=== PATIENT | male | born 1930 | race Caucasian/White ===

== ENCOUNTER 2019-02-11 15:27 | Inpatient (IN) | payer MEDICARE, BC ==
[2019-02-11] MEDS ORDERED: SODIUM CHLORIDE 0.9% 1,000 ML IV STA ×2 (16:46)
[2019-02-11] MEDS ORDERED: SODIUM CHLORIDE 0.9% 500 ML 500 ML IV STA (16:46)
[2019-02-11 17:08] LABS: Basophils % (A) 1 %; Eosinophils # (A) 0.2 k/uL (0-0.7); Eosinophils % (A) 3 %; HCT 42.3 % (39.0-53.0); HGB 13.8 gm/dL (13.0-17.5); Lymphocytes # (A) 2.1 k/uL (1.0-4.8); Lymphocytes % (A) 33 %; MCH 30.8 pg (25.0-35.0); MCHC 32.6 g/dL (31.0-37.0); MCV 94.4 fL (80.0-100.0); Mean Platelet Volume 6.7; Monocytes # (A) 0.5 k/uL (0-1.0); Monocytes % (A) 8 %; Neutrophils # (A) 3.5 k/uL (1.3-7.7); Neutrophils % (A) 54 %; Platelet Count 265 k/uL (150-450); RBC 4.48 m/uL (4.30-5.90); RDW 13.5 % (11.5-15.5); WBC 6.5 k/uL (3.8-10.6)
[2019-02-11 17:12] LABS: INR 2.5 (<1.2); Partial Thromboplastin Time 34.1 sec (22.0-30.0); Prothrombin Time 24.3 sec (9.0-12.0)
[2019-02-11 17:17] LABS: Albumin 4.2 g/dL (3.5-5.0); Calcium 9.1 mg/dL (8.4-10.2); Magnesium 1.8 mg/dL (1.6-2.3); Phosphorus 3.3 mg/dL (2.5-4.5); Potassium 4.4 mmol/L (3.5-5.1); Total Bilirubin 0.5 mg/dL (0.2-1.3); Total Protein 7.4 g/dL (6.3-8.2)
--- NOTE | 2019-02-11 17:52 | ED ---
Weakness HPI - General Chief complaint: Weakness Stated complaint: Poss Stroke Time Seen by Provider: 02/11/19 16:45 Source: patient, family, RN notes reviewed, old records reviewed Mode of arrival: wheelchair Limitations: no limitations - History of Present Illness Initial comments: This is an 88-year-old male the ER for evaluation. This patient resents today for evaluation regards to weakness. Likely dehydration. Patient denies any pain no nausea no vomiting no diarrhea no fevers no chest pain no headache. No trauma. Patient is no recent medication changes no recent travel history or sick contacts. No recent inpatient hospitalizations. Patient feels like he is eating and drinking appropriate. Family is concerned for dehydration. Patient has been getting increasingly weak MD Complaint: generalized weakness -: days(s) Location: generalized Severity: moderate Severity scale (1-10): 5 Consistency: constant Improves with: none Worsens with: none Associated Symptoms: loss of appetite, nausea/vomiting - Related Data Home Medications Medication Instructions Recorded Confirmed Digoxin [Lanoxin] 125 mcg PO DAILY 05/16/16 02/11/19 Sertraline [Zoloft] 25 mg PO DAILY 05/16/16 02/11/19 QUEtiapine FUMARATE 25 mg PO DAILY 08/02/16 02/11/19 Tamsulosin [Flomax] 0.4 mg PO DAILY 08/02/16 02/11/19 Memantine [Namenda] 5 mg PO DAILY 08/06/16 02/11/19 Warfarin [Coumadin] 2.5 mg PO DAILY 08/06/16 02/11/19 Allergies Allergy/AdvReac Type Severity Reaction Status Date / Time risperidone [From Risperdal] Allergy Unknown Verified 02/11/19 18:31 Review of Systems ROS Statement: Those systems with pertinent positive or pertinent negative responses have been documented in the HPI. ROS Other: All systems not noted in ROS Statement are negative. Past Medical History Past Medical History: Atrial Fibrillation, Coronary Artery Disease (CAD), Heart Failure, CVA/TIA, Dementia, GERD/Reflux, Hyperlipidemia, Hypertension, Memory Impairment, Prostate Disorder Additional Past Medical History / Comment(s): GERD(PER PAST MEDICAL CHART), "DIFFIUCLTY SWALLOWING LATELY" APPETITE DECREASED, UNSTEADY ON HIS FEET up until 2 days ago was walking with walker and assit in february 2016 epididymoorchitis/uti/sepsis, constipation History of Any Multi-Drug Resistant Organisms: MRSA Date of last positivie culture/infection: 04/06/16 MDRO Source:: urine Past Surgical History: Appendectomy, Heart Catheterization With Stent, Hernia Repair Additional Past Surgical History / Comment(s): JEVON CATARACT SX STATED PT'S VISION RT EYE IS BLURRY WAS TO HAVE LASER EYE SX BUT CANCELLED D/T THIS ADMIT.PILONIDAL CYST REMOVED, COLONOSCOPY.sinus sx Past Anesthesia/Blood Transfusion Reactions: No Reported Reaction Date of Last Stent Placement:: 08/21/12 Past Psychological History: Anxiety, Depression Smoking Status: Former smoker Past Alcohol Use History: None Reported Past Drug Use History: None Reported - Past Family History Father Family Medical History: Cancer, Prostate Disorder Additional Family Medical History / Comment(s): PROSTATE CANCER Mother Family Medical History: Dementia General Exam Limitations: no limitations General appearance: alert, in no apparent distress Head exam: Present: atraumatic, normocephalic, normal inspection Eye exam: Present: normal appearance, PERRL, EOMI. Absent: scleral icterus, conjunctival injection, periorbital swelling ENT exam: Present: normal exam, mucous membranes dry Neck exam: Present: normal inspection. Absent: tenderness, meningismus, lymphadenopathy Respiratory exam: Present: normal lung sounds bilaterally. Absent: respiratory distress, wheezes, rales, rhonchi, stridor Cardiovascular Exam: Present: regular rate, normal rhythm, normal heart sounds. Absent: systolic murmur, diastolic murmur, rubs, gallop, clicks GI/Abdominal exam: Present: soft, normal bowel sounds. Absent: distended, tenderness, guarding, rebound, rigid Extremities exam: Present: normal inspection, full ROM, normal capillary refill. Absent: tenderness, pedal edema, joint swelling, calf tenderness Back exam: Present: normal inspection Neurological exam: Present: alert, oriented X3, CN II-XII intact Psychiatric exam: Present: normal affect, normal mood Skin exam: Present: warm, dry, intact, normal color. Absent: rash Course Vital Signs 02/11/19 02/11/19 02/11/19 16:09 17:15 17:30 Temperature 97.5 F L Pulse Rate 66 61 62 Respiratory 16 15 12 Rate Blood Pressure 163/79 184/81 184/81 O2 Sat by Pulse 97 97 97 Oximetry 0602/11/19 02/11/19 18:00 18:15 18:30 Temperature Pulse Rate 67 70 71 Respiratory 20 16 13 Rate Blood Pressure 184/81 191/88 191/88 O2 Sat by Pulse 96 97 96 Oximetry 02/11/19 02/11/19 19:00 19:15 Temperature Pulse Rate 84 66 Respiratory 20 19 Rate Blood Pressure 200/91 168/82 O2 Sat by Pulse Oximetry - Reevaluation(s) Reevaluation #1: 02/11/19 18:16 Medical record is reviewed Reevaluation #2: 02/11/19 18:16 Patient feeling better with IV hydration Reevaluation #3: 02/11/19 19:41 Patient still feeling very weak, no chest pain shortness with abdominal pain, no real significant improvement here in the ER EKG Findings - EKG Comments: EKG Findings:: EKG shows sinus rhythm rate of 65, NM 200, QRS 100, QTC 399 Medical Decision Making - Medical Decision Making 88 male the ER for evaluation. Patient presents with weakness and dehydration, will not for IV hydration under observation, labwork otherwise unremarkable urine negative. - Lab Data Result diagrams: 02/11/19 16:52 02/11/19 16:52 Lab Results 02/11/19 02/11/19 02/11/19 Range/Units 16:52 16:52 16:52 WBC 6.5 (3.8-10.6) k/uL RBC 4.48 (4.30-5.90) m/uL Hgb 13.8 (13.0-17.5) gm/dL Hct 42.3 (39.0-53.0) % MCV 94.4 (80.0-100.0) fL MCH 30.8 (25.0-35.0) pg MCHC 32.6 (31.0-37.0) g/dL RDW 13.5 (11.5-15.5) % Plt Count 265 (150-450) k/uL Neutrophils % 54 % Lymphocytes % 33 % Monocytes % 8 % Eosinophils % 3 % Basophils % 1 % Neutrophils # 3.5 (1.3-7.7) k/uL Lymphocytes # 2.1 (1.0-4.8) k/uL Monocytes # 0.5 (0-1.0) k/uL Eosinophils # 0.2 (0-0.7) k/uL Basophils # 0.0 (0-0.2) k/uL PT 24.3 H (9.0-12.0) sec INR 2.5 H (<1.2) APTT 34.1 H (22.0-30.0) sec Sodium 138 (137-145) mmol/L Potassium 4.4 (3.5-5.1) mmol/L Chloride 102 (98-107) mmol/L Carbon Dioxide 31 H (22-30) mmol/L Anion Gap 5 mmol/L BUN 21 H (9-20) mg/dL Creatinine 1.01 (0.66-1.25) mg/dL Est GFR (CKD-EPI)AfAm 77 (>60 ml/min/1.73 sqM) Est GFR (CKD-EPI)NonAf 67 (>60 ml/min/1.73 sqM) Glucose 108 H (74-99) mg/dL Plasma Lactic Acid Alessandro (0.7-2.0) mmol/L Calcium 9.1 (8.4-10.2) mg/dL Phosphorus 3.3 (2.5-4.5) mg/dL Magnesium 1.8 (1.6-2.3) mg/dL Total Bilirubin 0.5 (0.2-1.3) mg/dL AST 23 (17-59) U/L ALT 13 L (21-72) U/L Alkaline Phosphatase 63 (38-126) U/L Troponin I (0.000-0.034) ng/mL Total Protein 7.4 (6.3-8.2) g/dL Albumin 4.2 (3.5-5.0) g/dL TSH 4.070 (0.465-4.680) mIU/L Urine Color Urine Appearance (Clear) Urine pH (5.0-8.0) Ur Specific [place] (1.001-1.035) Urine Protein (Negative) Urine Glucose (UA) (Negative) Urine Ketones (Negative) Urine Blood (Negative) Urine Nitrite (Negative) Urine Bilirubin (Negative) Urine Urobilinogen (<2.0) mg/dL Ur Leukocyte Esterase (Negative) Digoxin ng/mL 02/11/19 02/11/19 02/11/19 Range/Units 16:52 16:52 17:07 WBC (3.8-10.6) k/uL RBC (4.30-5.90) m/uL Hgb (13.0-17.5) gm/dL Hct (39.0-53.0) % MCV (80.0-100.0) fL MCH (25.0-35.0) pg MCHC (31.0-37.0) g/dL RDW (11.5-15.5) % Plt Count (150-450) k/uL Neutrophils % % Lymphocytes % % Monocytes % % Eosinophils % % Basophils % % Neutrophils # (1.3-7.7) k/uL Lymphocytes # (1.0-4.8) k/uL Monocytes # (0-1.0) k/uL Eosinophils # (0-0.7) k/uL Basophils # (0-0.2) k/uL PT (9.0-12.0) sec INR (<1.2) APTT (22.0-30.0) sec Sodium (137-145) mmol/L Potassium (3.5-5.1) mmol/L Chloride (98-107) mmol/L Carbon Dioxide (22-30) mmol/L Anion Gap mmol/L BUN (9-20) mg/dL Creatinine (0.66-1.25) mg/dL Est GFR (CKD-EPI)AfAm (>60 ml/min/1.73 sqM) Est GFR (CKD-EPI)NonAf (>60 ml/min/1.73 sqM) Glucose (74-99) mg/dL Plasma Lactic Acid Alessandro 1.8 (0.7-2.0) mmol/L Calcium (8.4-10.2) mg/dL Phosphorus (2.5-4.5) mg/dL Magnesium (1.6-2.3) mg/dL Total Bilirubin (0.2-1.3) mg/dL AST (17-59) U/L ALT (21-72) U/L Alkaline Phosphatase (38-126) U/L Troponin I <0.012 (0.000-0.034) ng/mL Total Protein (6.3-8.2) g/dL Albumin (3.5-5.0) g/dL TSH (0.465-4.680) mIU/L Urine Color Urine Appearance (Clear) Urine pH (5.0-8.0) Ur Specific [place] (1.001-1.035) Urine Protein (Negative) Urine Glucose (UA) (Negative) Urine Ketones (Negative) Urine Blood (Negative) Urine Nitrite (Negative) Urine Bilirubin (Negative) Urine Urobilinogen (<2.0) mg/dL Ur Leukocyte Esterase (Negative) Digoxin 0.7 ng/mL 02/11/19 Range/Units 19:02 WBC (3.8-10.6) k/uL RBC (4.30-5.90) m/uL Hgb (13.0-17.5) gm/dL Hct (39.0-53.0) % MCV (80.0-100.0) fL MCH (25.0-35.0) pg MCHC (31.0-37.0) g/dL RDW (11.5-15.5) % Plt Count (150-450) k/uL Neutrophils % % Lymphocytes % % Monocytes % % Eosinophils % % Basophils % % Neutrophils # (1.3-7.7) k/uL Lymphocytes # (1.0-4.8) k/uL Monocytes # (0-1.0) k/uL Eosinophils # (0-0.7) k/uL Basophils # (0-0.2) k/uL PT (9.0-12.0) sec INR (<1.2) APTT (22.0-30.0) sec Sodium (137-145) mmol/L Potassium (3.5-5.1) mmol/L Chloride (98-107) mmol/L Carbon Dioxide (22-30) mmol/L Anion Gap mmol/L BUN (9-20) mg/dL Creatinine (0.66-1.25) mg/dL Est GFR (CKD-EPI)AfAm (>60 ml/min/1.73 sqM) Est GFR (CKD-EPI)NonAf (>60 ml/min/1.73 sqM) Glucose (74-99) mg/dL Plasma Lactic Acid Alessandro (0.7-2.0) mmol/L Calcium (8.4-10.2) mg/dL Phosphorus (2.5-4.5) mg/dL Magnesium (1.6-2.3) mg/dL Total Bilirubin (0.2-1.3) mg/dL AST (17-59) U/L ALT (21-72) U/L Alkaline Phosphatase (38-126) U/L Troponin I (0.000-0.034) ng/mL Total Protein (6.3-8.2) g/dL Albumin (3.5-5.0) g/dL TSH (0.465-4.680) mIU/L Urine Color Light Yellow Urine Appearance Clear (Clear) Urine pH 5.5 (5.0-8.0) Ur Specific [place] 1.010 (1.001-1.035) Urine Protein Negative (Negative) Urine Glucose (UA) Negative (Negative) Urine Ketones Negative (Negative) Urine Blood Negative (Negative) Urine Nitrite Negative (Negative) Urine Bilirubin Negative (Negative) Urine Urobilinogen <2.0 (<2.0) mg/dL Ur Leukocyte Esterase Negative (Negative) Digoxin ng/mL - Radiology Data Radiology results: report reviewed (CT brain is negative for acute disease), image reviewed Disposition Clinical Impression: Dehydration, Weakness Disposition: ADMITTED IP TO THIS [facility] Condition: Fair Is patient prescribed a controlled substance at d/c from ED?: No Referrals: Eliel Vines MD [Primary Care Provider] - 1-2 days
--- NOTE | 2019-02-11 18:31 | CT ---
EXAMINATION: CT brain wo con DATE AND TIME: 02/11/2019 5:47 PM CLINICAL INDICATION: PHH; pain TECHNIQUE: Standard departmental protocol.; Dizziness COMPARISON: CT 08/06/2016 FINDINGS: The calvarium is intact. There is no intracranial hemorrhage. There is no intracranial mass or mass effect. No definite new intra-axial or extra-axial attenuation defect. The paranasal sinuses, middle ear cavities, and mastoid sinus air cells are clear. The orbits are unremarkable. IMPRESSION: NO ACUTE PROCESS.
[2019-02-11] MEDS ORDERED: LABETALOL SYRINGE 5 MG/ML IVP STA (19:04)
[2019-02-11 19:20] LABS: Appearance,Urine Clear (Clear); Bilirubin,Urine Negative (Negative); Blood,Urine Negative (Negative); Color,Urine Light Yellow; Glucose,Urine (UA) Negative (Negative); Ketones,Urine Negative (Negative); Leukocyte Esterase,Urine Negative (Negative); Nitrite,Urine Negative (Negative); PH, Urine 5.5 (5.0-8.0); Protein,Urine Negative (Negative); Urobilinogen,Urine <2.0 mg/dL (<2.0)
[2019-02-11] MEDS ORDERED: cloNIDine HCL 0.1 MG TAB PO PRN (22:12)
--- NOTE | 2019-02-11 22:48 | P.HPIM ---
History of Present Illness H&P Date: 02/11/19 Chief Complaint: vertigo 88 year old male with history of Afib, on coumadin, and TIA. Hypertension controlled without medications. patient presented today with 7 day history of not feeling well, with vertigo, and unsteady gait. he uses a walker to ambulate he has been sleeping more than usual, and not feeling like getting up due to not feeling well. he reports dizziness with vertigo eveytime he gets up , but resolves with sitting or laying down. denies any urinary symptoms, fever or chills. denies any coughing , SOB or chest pain. denies any headache, ringing sounds in his ears, or falls. he denies any GI bleeding. denies any abd pain or changes in his bowel movements. family noticed that his speech has been sounding different over the past week, and he seemed to be weaker on the left side when trying to stand up. patient , when asked, denies any focal neuro deficits. he denies any recent URI symptoms. inthe ED , initial workup was pretty unremarkable , CT of the head was negative for any acute process. EKG showed normal sinus rhythm Review of Systems Pertinent positives as noted in HPI. All other systems were reviewed and are negative Past Medical History Past Medical History: Atrial Fibrillation, Coronary Artery Disease (CAD), Heart Failure, CVA/TIA, Dementia, GERD/Reflux, Hyperlipidemia, Hypertension, Memory Impairment, Prostate Disorder Additional Past Medical History / Comment(s): GERD(PER PAST MEDICAL CHART), "DIFFIUCLTY SWALLOWING LATELY" APPETITE DECREASED, UNSTEADY ON HIS FEET up until 2 days ago was walking with walker and assit in february 2016 epididymoorchitis/uti/sepsis, constipation History of Any Multi-Drug Resistant Organisms: MRSA Date of last positivie culture/infection: 04/06/16 MDRO Source:: urine Past Surgical History: Appendectomy, Heart Catheterization With Stent, Hernia Repair Additional Past Surgical History / Comment(s): JEVON CATARACT SX STATED PT'S VISION RT EYE IS BLURRY WAS TO HAVE LASER EYE SX BUT CANCELLED D/T THIS ADMIT.PILONIDAL CYST REMOVED, COLONOSCOPY.sinus sx Past Anesthesia/Blood Transfusion Reactions: No Reported Reaction Date of Last Stent Placement:: 08/21/12 Past Psychological History: Anxiety, Depression Smoking Status: Former smoker Past Alcohol Use History: None Reported Past Drug Use History: None Reported - Past Family History Father Family Medical History: Cancer, Prostate Disorder Additional Family Medical History / Comment(s): PROSTATE CANCER Mother Family Medical History: Dementia Medications and Allergies Home Medications Medication Instructions Recorded Confirmed Type Digoxin [Lanoxin] 125 mcg PO DAILY 05/16/16 02/11/19 History Sertraline [Zoloft] 25 mg PO DAILY 05/16/16 02/11/19 History QUEtiapine FUMARATE 25 mg PO DAILY 08/02/16 02/11/19 History Tamsulosin [Flomax] 0.4 mg PO DAILY 08/02/16 02/11/19 History Memantine [Namenda] 5 mg PO DAILY 08/06/16 02/11/19 History Warfarin [Coumadin] 2.5 mg PO DAILY 08/06/16 02/11/19 History Allergies Allergy/AdvReac Type Severity Reaction Status Date / Time risperidone [From Risperdal] Allergy Unknown Verified 02/11/19 18:31 Physical Exam Vitals: Vital Signs Temp Pulse Pulse Resp BP BP Pulse Ox 02/11/19 22:09 97.4 F L 66 15 174/82 96 02/11/19 21:47 98.1 F 65 18 180/85 97 02/11/19 20:00 178/88 02/11/19 19:15 66 19 168/82 02/11/19 19:00 84 20 200/91 02/11/19 18:30 71 13 191/88 96 02/11/19 18:15 70 16 191/88 97 02/11/19 18:00 67 20 184/81 96 02/11/19 17:30 62 12 184/81 97 02/11/19 17:15 61 15 184/81 97 02/11/19 16:09 97.5 F L 66 16 163/79 97 Intake and Output 02/11/19 02/11/19 02/11/19 06:59 14:59 22:59 Other: Weight 61.3 kg Constitutional: No acute distress, conversant, pleasant, laying down comfortably in bed Eyes: Anicteric sclerae, moist conjunctiva, no lid-lag Small pupils bilaterally, equal and round. 2 mm, reactive to light. ENMT: NC/AT Oropharynx clear, no erythema, or exudates Neck: Supple, FROM, no masses, or JVD No carotid bruits No thyromegaly Lungs: Clear to auscultation Clear to percussion Normal respiratory effort, no accessory muscle use Cardiovascular: Heart regular in rate and rhythm, No murmurs, gallops, or rubs No peripheral edema Abdominal: Soft Nontender, no guarding, rebound or rigidity Abdomen moving with respiration Normoactive bowel sounds No hepatomegaly, No splenomegaly No palpable mass No abdominal wall hernia noted Skin: Normal temperature, tone, texture, turgor No induration No subcutaneous nodules No rash, lesions No ulcers Extremities: No digital cyanosis No clubbing Pedal pulses intact and symmetrical Radial pulses intact and symmetrical No calf tenderness Psychiatric: Alert and oriented to person, place and time Appropriate affect fair judgment Neuro Muscles Strength 4/5 in bilateral upper extremities, 3/5 over left lower extremity, and 4/5 over right lower extremity Sensation to light touch grossly present throughout Cranial nerves II-XII grossly intact No focal sensory deficits Lymphatics: no palpable cervical or supraclavicular , or inguinal lymph nodes Results CBC & Chem 7: 02/11/19 16:52 02/11/19 16:52 Labs: Abnormal Lab Results - Last 24 Hours (Table) 02/11/19 02/11/19 Range/Units 16:52 16:52 PT 24.3 H (9.0-12.0) sec INR 2.5 H (<1.2) APTT 34.1 H (22.0-30.0) sec Carbon Dioxide 31 H (22-30) mmol/L BUN 21 H (9-20) mg/dL Glucose 108 H (74-99) mg/dL ALT 13 L (21-72) U/L Assessment and Plan Assessment: 88-year-old male with history of A. fib on Coumadin, history of TIA. Hypertension controlled without medications. Admitted to observation with anticipated length of stay less than 48 hours for postural dizziness and vertigo along with unsteady gait of 1 week duration . patient was also found to have high blood pressure while laying down, however decreases upon sitting up. initial workup is unremarkable , patient thought to be dehydrated. CT of the head was negative. MRI of the brain also ordered for further evaluation. Plan: vertigo and dizziness with postural component , along with unsteady gait differential , dehydration, BPV, brain stem stroke. orthostatic vital signs iv fluid hydration fall precaution s PT/OT MRI of the brain carotid US monitor vital signs accelerated hypertension check blood pressure in sitting or standing position PRN clonidin for SBP >180 chronic conditions dementia P afib , rate controlle d, on coumadin and dig, continue coumadin dosing by pharmacy advanced age BPH on flomax Surrogate decision-maker: Patient and daughter CODE STATUS: No code DVT PPX on coumadin for afib Discussed with: Patient, ER, RN Anticipated discharge: <[address]: home with home care A total of 60 minutes was spent on the care of this complex patient more than 50% of the time was spent in counseling and care coordination.
[2019-02-11 23:54] LABS: INR 2.8 (<1.2); Prothrombin Time 26.7 sec (9.0-12.0)
[2019-02-12 06:27] LABS: INR 3.1 (<1.2); Prothrombin Time 29.9 sec (9.0-12.0)
--- NOTE | 2019-02-12 07:54 | US ---
EXAMINATION TYPE: US carotid duplex BILAT DATE OF EXAM: 02/12/2019 COMPARISON: 01/07/2015 CLINICAL HISTORY: dizziness. Dizziness Pt talking during exam EXAM MEASUREMENTS: RIGHT: Peak Systolic Velocity (PSV) cm/sec ----- Right CCA: 61.9 ----- Right ICA: 123.9 ----- Right ECA: 537.7 ICA/CCA ratio: 2.0 RIGHT: End Diastole cm/sec ----- Right CCA: 14.7 ----- Right ICA: 21.5 ----- Right ECA: 48.9 LEFT: Peak Systolic Velocity (PSV) cm/sec ----- Left CCA: 101.6 ----- Left ICA: 206.6 ----- Left ECA: 367.4 ICA/CCA ratio: 2.0 LEFT: End Diastole cm/sec ----- Left CCA: 16.0 ----- Left ICA: 22.3 ----- Left ECA: 0.0 VERTEBRALS (direction of flow): Right Vertebral: Antegrade Left Vertebral: Antegrade Rhythm: Normal Elevated velocities bilaterally, more within bilateral ECA's, slightly elevated ratio bilaterally IMPRESSION: 50-69% stenosis in the bilateral internal carotid arteries, left stenosis greater than r ight sonographically. CTA neck is recommended for better assessment of degree of stenosis. Criteria for Assigning % of Stenosis / Diameter reduction (Estimation based on the indirect measurements of the internal carotid artery velocities (ICA PSV). 1. Normal (no stenosis)=ICA PSV < 125 cm/s: ratio < 2.0: ICA EDV<40 cm/s. 2. Less than 50% stenosis=ICA PSV < 125 cm/s: ratio < 2.0: ICA EDV<40 cm/s. 3. 50 to 69% stenosis=ICA PSV of 125 to 230 cm/s: ration 2.0 ? 4.0: ICA EDV 40-100 cm/s. 4. Greater than 70% stenosis to near occlusion= ICA PSV > 230 cm/s: ratio > 4.0: ICA EDV > 100 cm/s. 5. Near occlusion= ICA PSV velocities may be low or undetectable: variable ratio and ICA EDV. 6. Total occlusion=unable to detect flow.
[2019-02-12] MEDS ORDERED: SERTRALINE 50 MG TAB PO SCH (09:00)
[2019-02-12] MEDS: MEMANTINE 5 MG TAB PO SCH (09:08)
[2019-02-12] MEDS: DIGOXIN 125 MCG TAB PO SCH (09:08)
[2019-02-12] MEDS: TAMSULOSIN 0.4 MG CAP.ER.24H PO SCH (09:08)
[2019-02-12] MEDS: QUEtiapine 25 MG TAB PO SCH (09:09)
[2019-02-12 11:18] VITALS: BMI 21.2
--- NOTE | 2019-02-12 14:48 | MR ---
EXAMINATION TYPE: MR brain wo con DATE OF EXAM: 02/12/2019 COMPARISON: MRI brain May 05, 2015. CT brain from yesterday. HISTORY: dizziness TECHNIQUE: Multiplanar, multisequence imaging of the brain and brainstem is performed without IV cont rast. FINDINGS: Diffusion weighted images demonstrate no evidence of a recent infarct or other diffusion abnormality. There is no worrisome extra-axial fluid collection. There is diffuse ventricular and sulcal prominenc e. There are focal and confluent areas of T2 hyperintensity throughout the deep and periventricular w divya matter. Lesions are nonspecific in appearance and distribution. Midline structures demonstrate normal morphology. The craniocervical junction appears within normal limits. Normal vascular flow voids are present. The visualized sinuses are clear and the globes are i ntact. IMPRESSION: No evidence of a recent infarct. Moderate diffuse cerebral atrophy and moderate to severe chronic small vessel ischemic changes redemonstrated without significant change from most recent bucky or studies.
--- NOTE | 2019-02-12 16:18 | P.PN ---
Subjective Progress Note Date: 02/12/19 Principal diagnosis: Vertigo Patient was seen and examined. No acute events overnight. Patient complains of dizziness, described as lightheadedness and vertiginous symptoms. Dizziness is worse when he goes from a laying or sitting to a standing position. He denies any chest pain or palpitations. No nausea or vomiting. No fever or chills. This case was also discussed with his . reports that the patient has not been drinking enough water over the last couple of weeks. reports that patient thinks that water is poisoned. Objective - Vital Signs Vital signs: Vital Signs Temp 97.6 F 02/12/19 10:44 Pulse 75 02/12/19 10:44 Resp 18 02/12/19 10:44 BP 152/68 02/12/19 10:44 Pulse Ox 94 L 02/12/19 10:44 Intake & Output 02/11/19 02/12/19 02/12/19 18:59 06:59 18:59 Intake Total 0 240 Output Total 150 Balance 0 90 Weight 61.3 kg 61.3 kg Intake: Oral 0 240 Output: Urine 150 Other: Voiding Method Diaper Urinal Diaper # Voids 2 - Exam General: [non toxic], [no distress], [appears at stated age] Derm: [warm], [dry] Head: [atraumatic], [normocephalic], [symmetric] Eyes: [EOMI], [no lid lag], [anicteric sclera] Mouth: [no lip lesion], [mucus membranes moist] Cardiovascular: [S1S2 reg], [irregaular], [positive posterior tibial pulse bilateral], Lungs: [CTA bilateral], [no rhonchi, no rales] , [no accessory muscle use] Abdominal: [soft], [ nontender to palpation], [no guarding], [no appreciable organomegaly] Ext: [no gross muscle atrophy], [no edema], [no contractures] Neuro: [no focal neuro deficits] Psych: [Alert], [oriented], [appropriate affect] - Labs CBC & Chem 7: 02/11/19 16:52 02/11/19 16:52 Labs: Abnormal Lab Results - Last 24 Hours (Table) 02/11/19 02/11/19 02/11/19 Range/Units 16:52 16:52 23:22 PT 24.3 H 26.7 H (9.0-12.0) sec INR 2.5 H 2.8 H (<1.2) APTT 34.1 H (22.0-30.0) sec Carbon Dioxide 31 H (22-30) mmol/L BUN 21 H (9-20) mg/dL Glucose 108 H (74-99) mg/dL ALT 13 L (21-72) U/L 02/12/19 Range/Units 05:49 PT 29.9 H (9.0-12.0) sec INR 3.1 H (<1.2) APTT (22.0-30.0) sec Carbon Dioxide (22-30) mmol/L BUN (9-20) mg/dL Glucose (74-99) mg/dL ALT (21-72) U/L Microbiology - Last 24 Hours (Table) 02/11/19 19:02 Urine Culture - Preliminary Urine,Voided Assessment and Plan Assessment: Assessment and Plan Vertigo and dizziness, postural with unsteady gait Accelerated hypertension Paroxysmal atrial fibrillation Dementia BPH Wide-ranging differentials. Orthostatic versus BPV versus rule out brainstem stroke. Brain CT is negative. Carotid Doppler shows 50-69% stenosis bilateral internal carotid arteries. Orthostats positive. Troponin less than 0.012, EKG showing normal sinus rhythm with left axis deviation. Plans: Stroke workup initiated, follow MRI brain and echocardiogram. Trend Trop/EKG to rule out ACS. Continue normal saline 80 mL per hour. Fall precautions. Neurochecks. Follow PT and OT recommendations. BP today as high as 152/68. Plans: Clonidine as needed for SBP over 180. Monitor vitals, adjust medications as necessary. Follow cardiology consultation. Plans: Rhythm control with digoxin. Coumadin dosing as per pharmacy. Telemetry monitoring. Follow cardiology consultation. Plans: Continue Seroquel. Continue [place]. Plans: Continue Flomax. Patient admitted for vertigo and dizziness. Orthostats positive. Stroke workup underway and pending. Cardiology consulted. DC planning based on PT recommendations.
[2019-02-12] MEDS: SODIUM CHLORIDE 0.9% 1,000 ML IV SCH (17:38)
[2019-02-12] MEDS ORDERED: WARFARIN 0.5 MG TAB PO ONE (18:00)
[2019-02-12] MEDS ORDERED: WARFARIN 2.5 MG TAB PO SCH (18:00)
[2019-02-13] MEDS: SODIUM CHLORIDE 0.9% 1,000 ML IV SCH (03:15)
[2019-02-13 07:59] LABS: INR 2.2 (<1.2); Prothrombin Time 21.5 sec (9.0-12.0)
[2019-02-13] MEDS ORDERED: SERTRALINE 25 MG TAB PO SCH (09:00)
[2019-02-13] MEDS: TAMSULOSIN 0.4 MG CAP.ER.24H PO SCH (11:44)
[2019-02-13] MEDS: MEMANTINE 5 MG TAB PO SCH (11:44)
[2019-02-13] MEDS: DIGOXIN 125 MCG TAB PO SCH (11:44)
[2019-02-13] MEDS: QUEtiapine 25 MG TAB PO SCH (11:44)
[2019-02-13] MEDS ORDERED: amLODIPine 5 MG TAB PO SCH (11:45)
--- NOTE | 2019-02-13 12:00 | P.CRDCN ---
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 The dizziness and lightheadedness started about a week ago. The patient does not have any symptoms of heart racing or fluttering with it, or syncope. He denies any symptoms of chest pain or chest discomfort, shortness of breath, or any other cardiac symptom. He denies any fever or chills or cough. No lower extremities edema. The patient underwent a workup for the dizziness and lightheadedness including an MRI of the brain which showed only chronic changes without acute changes, carotid duplex study which revealed intermedius bilateral carotid disease. The EKG showed sinus rhythm with nonspecific changes. The cardiac enzymes were checked and came in to be unremarkable. We consulted to see the patient for uncontrolled hypertension. The patient was not receiving any blood pressure medications at home in the hospital he was started on clonidine by mouth. When I saw him today the pressure continues to be elevated. I am going to add Norvasc to the current medical regimen. He underwent an echocardiogram which we will follow-up with. Past Medical History Past Medical History: Atrial Fibrillation, Coronary Artery Disease (CAD), Heart Failure, CVA/TIA, Dementia, GERD/Reflux, Hyperlipidemia, Hypertension, Memory Impairment, Prostate Disorder Additional Past Medical History / Comment(s): GERD(PER PAST MEDICAL CHART), "DIFFIUCLTY SWALLOWING LATELY" APPETITE DECREASED, UNSTEADY ON HIS FEET up until 2 days ago was walking with walker and assit in february 2016 epididymoorchitis/uti/sepsis, constipation History of Any Multi-Drug Resistant Organisms: MRSA Date of last positivie culture/infection: 04/06/16 MDRO Source:: urine Past Surgical History: Appendectomy, Heart Catheterization With Stent, Hernia Repair Additional Past Surgical History / Comment(s): JEVON CATARACT SX STATED PT'S VISION RT EYE IS BLURRY WAS TO HAVE LASER EYE SX BUT CANCELLED D/T THIS ADMIT.PILONIDAL CYST REMOVED, COLONOSCOPY.sinus sx Past Anesthesia/Blood Transfusion Reactions: No Reported Reaction Date of Last Stent Placement:: 08/21/12 Past Psychological History: Anxiety, Depression Smoking Status: Former smoker Past Alcohol Use History: None Reported Past Drug Use History: None Reported - Past Family History Father Family Medical History: Cancer, Prostate Disorder Additional Family Medical History / Comment(s): PROSTATE CANCER Mother Family Medical History: Dementia Medications and Allergies Home Medications Medication Instructions Recorded Confirmed Type Digoxin [Lanoxin] 125 mcg PO DAILY 05/16/16 02/11/19 History Sertraline [Zoloft] 25 mg PO DAILY 05/16/16 02/11/19 History QUEtiapine FUMARATE 25 mg PO DAILY 08/02/16 02/11/19 History Tamsulosin [Flomax] 0.4 mg PO DAILY 08/02/16 02/11/19 History Memantine [Namenda] 5 mg PO DAILY 08/06/16 02/11/19 History Warfarin [Coumadin] 2.5 mg PO DAILY 08/06/16 02/11/19 History Allergies Allergy/AdvReac Type Severity Reaction Status Date / Time risperidone [From Risperdal] Allergy Unknown Verified 02/11/19 18:31 Physical Exam Vitals: Vital Signs Temp Pulse Pulse Pulse Pulse Resp BP 02/13/19 08:00 97.3 F L 57 L 18 180/94 02/13/19 04:00 97.8 F 70 16 183/75 02/13/19 03:03 16 02/12/19 23:23 16 02/12/19 20:00 16 02/12/19 19:41 98.2 F 57 L 16 176/82 02/12/19 16:00 98.0 F 68 16 161/70 02/12/19 12:00 96 99 75 18 Pulse Ox 02/13/19 08:00 95 02/13/19 04:00 93 L 02/13/19 03:03 02/12/19 23:23 02/12/19 20:00 02/12/19 19:41 95 02/12/19 16:00 95 02/12/19 12:00 Intake and Output 02/12/19 02/13/19 02/13/19 22:59 06:59 14:59 Output Total 350 Balance -350 Output: Urine 350 Other: Voiding Method Urinal Urinal Urinal Diaper Diaper Diaper # Voids 1 1 # Bowel Movements 1 - Constitutional General appearance: no acute distress - Respiratory Respiratory: bilateral: CTA - Cardiovascular Rhythm: regular Heart sounds: normal: S1, S2 Results 02/11/19 16:52 02/11/19 16:52 Cardiac Enzymes 02/13/19 Range/Units 06:38 Troponin I <0.012 (0.000-0.034) ng/mL Coagulation 02/13/19 Range/Units 06:38 PT 21.5 H (9.0-12.0) sec Current Medications Generic Name Dose Route Start Last Admin Trade Name Freq PRN Reason Stop Dose Admin Amlodipine Besylate 5 mg 02/13/19 11:45 02/13/19 11:44 Norvasc PO 5 mg DAILY SYLVAIN Administration Clonidine 0.1 mg 02/11/19 22:12 Catapres PO TID PRN Blood Pressure - High Digoxin 125 mcg 02/12/19 09:00 02/13/19 11:44 Lanoxin PO 125 mcg DAILY SYLVAIN Administration Memantine 5 mg 02/12/19 09:00 02/13/19 11:44 Namenda PO 5 mg DAILY SYLVAIN Administration Miscellaneous Information 1 each 02/11/19 22:14 Coumadin Per Pharmacy MISCELLANE DIRECTED PRN Per Protocol Quetiapine Fumarate 25 mg 02/12/19 09:00 02/13/19 11:44 Seroquel PO 25 mg DAILY SYLVAIN Administration Sertraline HCl 25 mg 02/13/19 09:00 02/13/19 11:44 Zoloft PO 25 mg DAILY SYLVAIN Administration Tamsulosin HCl 0.4 mg 02/12/19 09:00 02/13/19 11:44 Flomax PO 0.4 mg DAILY SYLVAIN Administration Warfarin Sodium 2.5 mg 02/13/19 18:00 Coumadin PO 02/13/19 18:01 ONCE@1800 ONE Intake and Output 02/12/19 02/13/19 02/13/19 22:59 06:59 14:59 Output Total 350 Balance -350 Output: Urine 350 Other: Voiding Method Urinal Urinal Urinal Diaper Diaper Diaper # Voids 1 1 # Bowel Movements 1 02/11/19 16:52 02/11/19 16:52 Assessment and Plan Assessment: Assessment #1 hypertension seems to be not well-controlled #2 dizziness and lightheadedness #3 coronary artery disease seems to be stable #4 paroxysmal atrial fibrillation the patient is maintaining normal sinus mechanism #5 underlying dementia Plan #1 the dizziness and lightheadedness is unlikely to be cardiovascular related #2 I am going to add Norvasc to the current medical regimen #3 follow-up on the echocardiogram #4 the patient was ruled out for acute coronary event #5 follow-up with the patient Thank you for allowing us participate in his care
[2019-02-13] MEDS ORDERED: WARFARIN 2.5 MG TAB PO ONE (18:00)
[2019-02-13 18:05] LABS: HCT 40.8 % (39.0-53.0); HGB 12.6 gm/dL (13.0-17.5); MCH 29.7 pg (25.0-35.0); MCHC 30.8 g/dL (31.0-37.0); MCV 96.6 fL (80.0-100.0); Mean Platelet Volume 8.2; Platelet Count 244 k/uL (150-450); RBC 4.22 m/uL (4.30-5.90); RDW 13.6 % (11.5-15.5); WBC 7.9 k/uL (3.8-10.6)
[2019-02-13 18:10] LABS: Albumin 3.4 g/dL (3.5-5.0); Calcium 8.5 mg/dL (8.4-10.2); Potassium 4.3 mmol/L (3.5-5.1); Total Bilirubin 0.5 mg/dL (0.2-1.3); Total Protein 6.2 g/dL (6.3-8.2)
--- NOTE | 2019-02-13 18:17 | CT ---
EXAMINATION TYPE: CT brain wo con DATE OF EXAM: 02/13/2019 COMPARISON: 02/11/2019 HISTORY: Weakness. stroke CT DLP: 1099.4 mGycm Automated exposure control for dose reduction was used. FINDINGS: There is cerebral cortical atrophy. There is patchy hypodensity in the periventricular white matter. There is no mass effect nor midline shift. There is no sign of intracranial hemorrhage. The calvarium is intact. IMPRESSION: CEREBRAL ATROPHY AND CHRONIC SMALL VESSEL ISCHEMIA. NO ACUTE INTRACRANIAL ABNORMALITY. NO SIGNIFICANT CHANGE.
--- NOTE | 2019-02-13 18:57 | P.PN ---
Subjective Progress Note Date: 02/13/19 (Delayed charting seen at 1300) Principal diagnosis: Dizziness Patient is an 88-year-old male with a past medical history of atrial fibrillation, coronary artery disease, CHF, hypertension, dyslipidemia, and prior CVA as well as multiple other comorbid conditions he sees Dr. Vines. He presented to the ER with complaints of dizziness. In the ER he underwent an extensive evaluation. His vital signs within normal limits on admission but blood pressure elevated to 184/81 shortly afterward. Initial laboratory analysis showed slight dehydration with Bielen of 21 and creatinine of 1. Labs were otherwise within normal limits. Initial head CT showed no acute process. Initial EKG showed normal sinus rhythm without any significant ST-T wave changes. He was admitted for further evaluation for possible stroke due to his dizziness. He subsequently underwent carotid Dopplers which showed a 50-69% stenosis bilaterally. MRI brain showed moderate diffuse cerebral atrophy with moderate to severe chronic small vessel ischemic changes without significant change from prior studies. Cardiology was consulted. He was found to have positive orthostatic vital signs. They felt that his hypertension was not well controlled. Patient seen and examined at bedside. He is very lethargic today. He wakes up and denies any chest pain or shortness of breath but immediately falls back asleep. Follows simple commands. Her family has not slept in 2 days. He also states that he is having these periods when he has been on blood pressure medications. They relate that he has a history of high blood pressure, however when he was on medications his blood pressure fell abruptly. They state he has not been on blood pressure medications in quite some time. He has been struggling with dizziness on standing for the last 2 months but it got acutely worse over the last week. They also report that he has a history of Milner secondary to urinary retention which resulted in UTI with sepsis. He has been at the [facility]. He has had episodes of sleeping during the day, and he feels this is not abnormal for him. Objective - Vital Signs Vital signs: Vital Signs Temp 97.4 F L 02/13/19 16:00 Pulse 69 02/13/19 16:00 Resp 16 02/13/19 16:00 BP 152/74 02/13/19 16:00 Pulse Ox 95 02/13/19 16:00 Intake & Output 02/12/19 02/13/19 02/13/19 18:59 06:59 18:59 Intake Total 240 Output Total 500 Balance -260 Weight 61.3 kg Intake: Oral 240 Output: Urine 500 Other: Voiding Method Urinal Urinal Urinal Diaper Diaper Diaper # Voids 1 # Bowel Movements 1 - Exam General: non toxic, no distress, appears at stated age Derm: warm, dry Head: atraumatic, normocephalic, symmetric Eyes: EOMI, no lid lag, anicteric sclera Mouth: no lip lesion, mucus membranes moist Ears: Bilateral tympanic membranes with positive cone of light, no bulging, no erythema, nonobstructing wax in both ear canals Cardiovascular: S1S2 reg, no murmur, positive posterior tibial pulse bilateral, Lungs: CTA bilateral, no rhonchi, no rales , no accessory muscle use Abdominal: soft, nontender to palpation, no guarding, no appreciable organomegaly Ext: no gross muscle atrophy, no edema, no contractures Neuro: CN II-XI grossly intact, no focal neuro deficits Psych: Wakes up and responds appropriately, lethargic - Labs CBC & Chem 7: 02/13/19 06:38 02/13/19 06:38 Labs: Abnormal Lab Results - Last 24 Hours (Table) 02/13/19 02/13/19 02/13/19 Range/Units 06:38 06:38 06:38 RBC 4.22 L (4.30-5.90) m/uL Hgb 12.6 L (13.0-17.5) gm/dL MCHC 30.8 L (31.0-37.0) g/dL PT 21.5 H (9.0-12.0) sec INR 2.2 H (<1.2) Glucose 102 H (74-99) mg/dL ALT 14 L (21-72) U/L Total Protein 6.2 L (6.3-8.2) g/dL Albumin 3.4 L (3.5-5.0) g/dL Microbiology - Last 24 Hours (Table) 02/11/19 19:02 Urine Culture - Final Urine,Voided Assessment and Plan Assessment: Dizziness with positive orthostatic vital signs -
--- NOTE | 2019-02-13 19:12 | ECHOF ---
Referral Reason:Vertigo MEASUREMENTS -------- HEIGHT: 170.2 cm WEIGHT: 60.3 kg BP: RVIDd: 2.3 cm (< 3.3) IVSd: 1.5 cm (0.6 - 1.1) LVIDd: 3.0 cm (3.9 - 5.3) LVPWd: 1.5 cm (0.6 - 1.1) IVSs: 1.8 cm LVIDs: 2.1 cm LVPWs: 1.3 cm Ao Diam: 3.3 cm (2.0 - 3.7) AV Cusp: 1.5 cm (1.5 - 2.6) LA Diam: 4.0 cm (2.7 - 3.8) MV EXCURSION: 10.412 mm (> 18.000) MV EF SLOPE: 36 mm/s (70 - 150) EPSS: 1.5 cm MV E Jann: 0.74 m/s MV DecT: 179 ms MV A Jann: 0.78 m/s MV E/A Ratio: 0.95 RAP: 5.00 mmHg RVSP: 37.80 mmHg FINDINGS -------- Sinus rhythm with extra systolic beats. This was a technically good study. Suboptimal image quality - poor subcostal views. The left ventricular size is normal. There is moderate concentric left ventricular hypertrophy. O verall left ventricular systolic function is normal with, an EF between 55 - 60 %. The right ventricle is normal in size. Normal LA size by volume 22+/-6 ml/m2. The right atrial size is normal. Aortic valve is trileaflet and is mildly thickened. The mitral valve leaflets are mildly thickened. Mild mitral regurgitation is present. Trace tricuspid regurgitation present. The right ventricular systolic pressure, as measured by Dopp ler, is 37.80mmHg. There is no pulmonic regurgitation present. The aortic root size is normal. IVC Not well visulized. There is no pericardial effusion. CONCLUSIONS -------- 1. Sinus rhythm with extra systolic beats. 2. This was a technically good study. 3. Suboptimal image quality - poor subcostal views. 4. The left ventricular size is normal. 5. There is moderate concentric left ventricular hypertrophy. 6. Overall left ventricular systolic function is normal with, an EF between 55 - 60 %. 7. The right ventricle is normal in size. 8. Normal LA size by volume 22+/-6 ml/m2. 9. The right atrial size is normal. 10. Aortic valve is trileaflet and is mildly thickened. 11. The mitral valve leaflets are mildly thickened. 12. Mild mitral regurgitation is present. 13. Trace tricuspid regurgitation present. 14. The right ventricular systolic pressure, as measured by Doppler, is 37.80mmHg. 15. There is no pulmonic regurgitation present. 16. The aortic root size is normal. 17. IVC Not well visulized. 18. There is no pericardial effusion. RADIOLOGY PHYSICIAN ASSISTANT: Allison Heath RDCS
--- NOTE | 2019-02-14 07:50 | P.PN ---
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 The dizziness and lightheadedness started about a week ago. The patient does not have any symptoms of heart racing or fluttering with it, or syncope. He denies any symptoms of chest pain or chest discomfort, shortness of breath, or any other cardiac symptom. He denies any fever or chills or cough. No lower extremities edema. The patient underwent a workup for the dizziness and lightheadedness including an MRI of the brain which showed only chronic changes without acute changes, carotid duplex study which revealed intermedius bilateral carotid disease. The EKG showed sinus rhythm with nonspecific changes. The cardiac enzymes were checked and came in to be unremarkable. On follow-up with the patient today, 02/14/2019, the dizziness seems to be better. The patient denies any symptoms of chest pain or chest discomfort. The blood pressure continues to be elevated but the patient does have orthostatic hypotension. He was started on clonidine as well as Norvasc yesterday and both are stopped at this point. From the cardiovascular standpoint overview, the patient can be discharged home. The echo revealed normal LV function without any significant valvular abnormalities.
[2019-02-14] MEDS: DIGOXIN 125 MCG TAB PO SCH (08:24)
[2019-02-14] MEDS: TAMSULOSIN 0.4 MG CAP.ER.24H PO SCH (08:24)
[2019-02-14] MEDS ORDERED: amLODIPine 5 MG TAB PO SCH (09:00)
[2019-02-14 09:24] LABS: Calcium 8.9 mg/dL (8.4-10.2); Potassium 4.2 mmol/L (3.5-5.1)
[2019-02-14 09:28] LABS: INR 1.6 (<1.2)
[2019-02-14 09:35] LABS: HCT 41.9 % (39.0-53.0); HGB 13.6 gm/dL (13.0-17.5); MCH 30.2 pg (25.0-35.0); MCHC 32.4 g/dL (31.0-37.0); MCV 93.3 fL (80.0-100.0); Mean Platelet Volume 7.4; Platelet Count 259 k/uL (150-450); RBC 4.49 m/uL (4.30-5.90); RDW 14.6 % (11.5-15.5); WBC 7.2 k/uL (3.8-10.6)
[2019-02-14] MEDS ORDERED: ACETAMINOPHEN TAB 325 MG TAB PO PRN (13:24)
[2019-02-14] MEDS: SERTRALINE 25 MG TAB PO SCH (14:03)
--- NOTE | 2019-02-14 14:57 | P.PN ---
Subjective Progress Note Date: 02/14/19 Principal diagnosis: Dizziness Patient is an 88-year-old male with a past medical history of atrial fibrillation, coronary artery disease, CHF, hypertension, dyslipidemia, and prior CVA as well as multiple other comorbid conditions who sees Dr. Vines. He presented to the ER with complaints of dizziness. In the ER he underwent an extensive evaluation. His vital signs within normal limits on admission but blood pressure elevated to 184/81 shortly afterward. Initial laboratory analysis showed slight dehydration with Bielen of 21 and creatinine of 1. Labs were otherwise within normal limits. Initial head CT showed no acute process. Initial EKG showed normal sinus rhythm without any significant ST-T wave changes. He was admitted for further evaluation for possible stroke due to his dizziness. He subsequently underwent carotid Dopplers which showed a 50-69% stenosis bilaterally. MRI brain showed moderate diffuse cerebral atrophy with moderate to severe chronic small vessel ischemic changes without significant change from prior studies. Cardiology was consulted. He was found to have positive orthostatic vital signs. They felt that his hypertension was not well controlled, how ever high risk for medications due to orthostatic hypotension. Echo with EF 55-60%, moderate LVH, no significant valvular dysfunction. He was very lethargic on 02/13 was not safe to discharge secondary to lethargy. Head CT was repeated which again showed no acute process. Blood work repeated without any changes. Family feels that lethargy was due to blood pressure medications as he has had this issue when he took blood pressure meds in the past. Patient seen and examined at bedside. and daughter present. He is very angry today, keeps asking me who I am and states he doesn't know me. Denies any chest pain or shortness of breath. Still complains of dizziness. Discussed with daughter and plans for discharge. They would like him to return home. They have paid caretakers 4 hours a day Sunday through Sunday, they have been easily able to manage him at home. Objective - Vital Signs Vital signs: Vital Signs Temp 97.7 F 02/14/19 07:00 Pulse 64 02/14/19 07:00 Resp 15 02/14/19 07:00 BP 135/75 02/14/19 07:00 Pulse Ox 93 L 02/14/19 03:52 Intake & Output 02/13/19 02/14/19 02/14/19 18:59 06:59 18:59 Intake Total 240 180 Output Total 352 1 Balance -112 179 Intake: Oral 240 180 Output: Urine 352 Urine/Stool Mix 1 Other: Voiding Method Urinal Diaper Diaper Diaper Incontinent Incontinent # Voids 1 # Bowel Movements 1 - Exam General: non toxic, no distress, appears at stated age Derm: warm, dry Head: atraumatic, normocephalic, symmetric Eyes: EOMI, no lid lag, anicteric sclera Mouth: no lip lesion, mucus membranes moist Cardiovascular: S1S2 reg, no murmur, positive posterior tibial pulse bilateral, Lungs: Decreased breath sounds bilateral, no rhonchi, no rales , no accessory muscle use Abdominal: soft, nontender to palpation, no guarding, no appreciable organomegaly Ext: no gross muscle atrophy, no edema, no contractures Neuro: CN II-XI grossly intact, no focal neuro deficits Psych: awake, alert,easily frustrated - Labs CBC & Chem 7: 02/14/19 08:57 02/14/19 08:57 Labs: Abnormal Lab Results - Last 24 Hours (Table) 02/13/19 02/13/19 02/14/19 Range/Units 06:38 06:38 08:57 RBC 4.22 L (4.30-5.90) m/uL Hgb 12.6 L (13.0-17.5) gm/dL MCHC 30.8 L (31.0-37.0) g/dL PT 16.0 H (9.0-12.0) sec INR 1.6 H (<1.2) Glucose 102 H (74-99) mg/dL ALT 14 L (21-72) U/L Total Protein 6.2 L (6.3-8.2) g/dL Albumin 3.4 L (3.5-5.0) g/dL 02/14/19 Range/Units 08:57 RBC (4.30-5.90) m/uL Hgb (13.0-17.5) gm/dL MCHC (31.0-37.0) g/dL PT (9.0-12.0) sec INR (<1.2) Glucose 101 H (74-99) mg/dL ALT (21-72) U/L Total Protein (6.3-8.2) g/dL Albumin (3.5-5.0) g/dL Assessment and Plan Assessment: Dizziness with positive orthostatic hypotension and resting hypertension - will attempt to stay off BP meds if systolic stable, family does not want BP medications. - s/p IVF and orthostatics still + - high salt diet, compression stockings - echo without significant valvular dysfunction - no ear pathology noted Generalized weakness with gait instability - per PT/OT do not recommend home - check UA, was clear on arrival HTN urgency, improved - follow BP closely - avoid direct vasodilators - cardio recs Acute encephalopathy, improving - undetermined cause - UA negative on admission - medications verified with by nursing BPH - not a candidate to stop flomax P. A fib with therapeutic coumadin - repat INR in AM - Coumadin tonight - Tele DVT prophylaxis: coumadin Discussed with: Patient, , daughter Anticipated discharge: in AM if ambulation improved Anticipated discharge place: home A total of 25 minutes was spent on the care of this complex patient more than 50% of the time was spent in counseling and care coordination.
[2019-02-14] MEDS ORDERED: WARFARIN 5 MG TAB PO ONE (18:00)
[2019-02-15 06:48] LABS: Glucose,Whole Blood 102 mg/dL (75-99)
[2019-02-15 07:48] LABS: INR 1.5 (<1.2); Prothrombin Time 15.4 sec (9.0-12.0)
[2019-02-15] MEDS: MEMANTINE 5 MG TAB PO SCH (09:07)
[2019-02-15] MEDS: SERTRALINE 25 MG TAB PO SCH (09:07)
[2019-02-15] MEDS: QUEtiapine 25 MG TAB PO SCH (09:07)
[2019-02-15] MEDS: TAMSULOSIN 0.4 MG CAP.ER.24H PO SCH (09:07)
[2019-02-15] MEDS: DIGOXIN 125 MCG TAB PO SCH (09:07)
--- NOTE | 2019-02-15 12:01 | P.PN ---
Subjective Progress Note Date: 02/15/19 Principal diagnosis: Dizziness Patient is an 88-year-old male with a past medical history of atrial fibrillation, coronary artery disease, CHF, hypertension, dyslipidemia, and prior CVA as well as multiple other comorbid conditions who sees Dr. Vines. He presented to the ER with complaints of dizziness. In the ER he underwent an extensive evaluation. His vital signs within normal limits on admission but blood pressure elevated to 184/81 shortly afterward. Initial laboratory analysis showed slight dehydration with Bielen of 21 and creatinine of 1. Labs were otherwise within normal limits. Initial head CT showed no acute process. Initial EKG showed normal sinus rhythm without any significant ST-T wave changes. He was admitted for further evaluation for possible stroke due to his dizziness. He subsequently underwent carotid Dopplers which showed a 50-69% stenosis bilaterally. MRI brain showed moderate diffuse cerebral atrophy with moderate to severe chronic small vessel ischemic changes without significant change from prior studies. Cardiology was consulted. He was found to have positive orthostatic vital signs. They felt that his hypertension was not well controlled, how ever high risk for medications due to orthostatic hypotension. Echo with EF 55-60%, moderate LVH, no significant valvular dysfunction. He was very lethargic on 02/13 was not safe to discharge secondary to lethargy. Head CT was repeated which again showed no acute process. Blood work repeated without any changes. Family feels that lethargy was due to blood pressure medications as he has had this issue when he took blood pressure meds in the past. More alert on 02/15 but still with blood pressure falling on standing. Seen by PT who recommends long term family in agreement. Patient seen and examined at bedside. Still feeling slightly dizzy, worse when sitting up, no chest pain, no shortness of breath. Objective - Vital Signs Vital signs: Vital Signs Temp 98.4 F 02/15/19 05:00 Pulse 68 02/15/19 05:00 Resp 18 02/15/19 05:00 BP 149/75 02/15/19 05:00 Pulse Ox 94 L 02/15/19 05:00 Intake & Output 02/14/19 02/15/19 02/15/19 18:59 06:59 18:59 Intake Total 180 360 Output Total 1 Balance 179 360 Intake: Oral 180 360 Output: Urine/Stool Mix 1 Other: Voiding Method Diaper Diaper Incontinent Incontinent # Voids 2 # Bowel Movements 1 1 - Exam General: non toxic, no distress, appears at stated age Derm: warm, dry Head: atraumatic, normocephalic, symmetric Eyes: EOMI, no lid lag, anicteric sclera Mouth: no lip lesion, mucus membranes moist Cardiovascular: S1S2 reg, no murmur, positive posterior tibial pulse bilateral, Lungs: Decreased breath sounds bilateral, no rhonchi, no rales , no accessory muscle use Abdominal: soft, nontender to palpation, no guarding, no appreciable organomegaly Ext: no gross muscle atrophy, no edema, no contractures Neuro: CN II-XI grossly intact, no focal neuro deficits Psych: awake, alert,easily frustrated - Labs CBC & Chem 7: 02/14/19 08:57 02/14/19 08:57 Labs: Abnormal Lab Results - Last 24 Hours (Table) 02/15/19 02/15/19 Range/Units 06:47 06:56 PT 15.4 H (9.0-12.0) sec INR 1.5 H (<1.2) POC Glucose (mg/dL) 102 H (75-99) mg/dL Assessment and Plan Assessment: Dizziness with positive orthostatic hypotension and resting hypertension - systolic improved - s/p IVF and orthostatics still + - high salt diet, compression stockings - echo without significant valvular dysfunction - no ear pathology noted - negative jazzmine-hallpike Generalized weakness with gait instability - per PT/OT do not recommend home - check UA, was clear on arrival - plan on snf HTN urgency, improved - follow BP closely - avoid direct vasodilators - cardio recs Acute encephalopathy, improving - undetermined cause - UA negative on admission - medications verified with by nursing BPH - not a candidate to stop flomax after discussion with family/pcp P. A fib with therapeutic coumadin - repat INR in AM - Coumadin tonight - Tele DVT prophylaxis: coumadin Discussed with: Patient, , daughter Anticipated discharge: 02/17 if SNF bed available Anticipated discharge place: long term A total of 25 minutes was spent on the care of this complex patient more than 50% of the time was spent in counseling and care coordination.
[2019-02-15] MEDS ORDERED: WARFARIN 3 MG TAB PO ONE (18:00)
[2019-02-15] MEDS ORDERED: WARFARIN 5 MG TAB PO ONE (18:00)
[2019-02-16 07:58] LABS: INR 1.9 (<1.2); Prothrombin Time 18.8 sec (9.0-12.0)
[2019-02-16] MEDS: SERTRALINE 25 MG TAB PO SCH (08:17)
[2019-02-16] MEDS: QUEtiapine 25 MG TAB PO SCH (08:17)
[2019-02-16] MEDS: TAMSULOSIN 0.4 MG CAP.ER.24H PO SCH (08:17)
[2019-02-16] MEDS: DIGOXIN 125 MCG TAB PO SCH (08:17)
[2019-02-16] MEDS: MEMANTINE 5 MG TAB PO SCH (08:17)
--- NOTE | 2019-02-16 13:05 | P.PN ---
Subjective Progress Note Date: 02/16/19 Principal diagnosis: Dizziness Patient is an 88-year-old male with a past medical history of atrial fibrillation, coronary artery disease, CHF, hypertension, dyslipidemia, and prior CVA as well as multiple other comorbid conditions who sees Dr. Vines. He presented to the ER with complaints of dizziness. In the ER he underwent an extensive evaluation. His vital signs within normal limits on admission but blood pressure elevated to 184/81 shortly afterward. Initial laboratory analysis showed slight dehydration with Bielen of 21 and creatinine of 1. Labs were otherwise within normal limits. Initial head CT showed no acute process. Initial EKG showed normal sinus rhythm without any significant ST-T wave changes. He was admitted for further evaluation for possible stroke due to his dizziness. He subsequently underwent carotid Dopplers which showed a 50-69% stenosis bilaterally. MRI brain showed moderate diffuse cerebral atrophy with moderate to severe chronic small vessel ischemic changes without significant change from prior studies. Cardiology was consulted. He was found to have positive orthostatic vital signs. They felt that his hypertension was not well controlled, how ever high risk for medications due to orthostatic hypotension. Echo with EF 55-60%, moderate LVH, no significant valvular dysfunction. He was very lethargic on 02/13 was not safe to discharge secondary to lethargy. Head CT was repeated which again showed no acute process. Blood work repeated without any changes. Family feels that lethargy was due to blood pressure medications as he has had this issue when he took blood pressure meds in the past. More alert on 02/15 but still with blood pressure falling on standing. Seen by PT who recommends [facility] family in agreement. Patient not safe to discharge home, continues to be dizzy and unsteady on standing. Patient seen and examined at bedside. Reports that he was dizzy when sitting up. Initially states dizzy when laying down, then states not dizzy at this time. Denies chest pain, sob, or nausea. Ate breakfast per . Objective - Vital Signs Vital signs: Vital Signs Temp 97.6 F 02/16/19 12:01 Pulse 64 02/16/19 12:01 Resp 16 02/16/19 12:01 BP 170/88 02/16/19 12:01 Pulse Ox 95 02/16/19 12:01 Intake & Output 02/15/19 02/16/19 02/16/19 18:59 06:59 18:59 Intake Total 1120 360 720 Output Total 1 350 350 Balance 1119 10 370 Intake: Oral 1120 360 720 Output: Urine 1 350 350 Other: Voiding Method Diaper Diaper Bedside Commode Incontinent Incontinent Diaper Incontinent # Voids 1 1 1 # Bowel Movements 1 - Exam General: non toxic, no distress, appears at stated age Derm: warm, dry Head: atraumatic, normocephalic, symmetric Eyes: EOMI, no lid lag, anicteric sclera Mouth: no lip lesion, mucus membranes moist Cardiovascular: S1S2 reg, no murmur, positive posterior tibial pulse bilateral, Lungs: Decreased breath sounds bilateral, no rhonchi, no rales , no accessory muscle use Ext: no gross muscle atrophy, no edema, no contractures Neuro: CN II-XI grossly intact, no focal neuro deficits Psych: awake, alert, pleasant - Labs CBC & Chem 7: 02/14/19 08:57 02/14/19 08:57 Labs: Abnormal Lab Results - Last 24 Hours (Table) 02/16/19 Range/Units 06:48 PT 18.8 H (9.0-12.0) sec INR 1.9 H (<1.2) Assessment and Plan Assessment: Dizziness with positive orthostatic hypotension and resting hypertension - Patient is not safe to discharge home, family in agreement with rehab. - systolic labile only treat if great than 180 consistently - s/p IVF and orthostatics still + - high salt diet, compression stockings - echo without significant valvular dysfunction - no ear pathology noted - negative jazzmine-hallpike - not a candidate to stop flomax after discussion with family/pcp - not a candidate for midodrine or florinef due to resting hypertension Generalized weakness with gait instability - per PT/OT do not recommend home - check UA, was clear on arrival - plan on snf HTN urgency, improved - follow BP closely - avoid direct vasodilators - cardio recs Acute encephalopathy, improving - undetermined cause - UA negative on admission - medications verified with by nursing BPH - not a candidate to stop flomax after discussion with family/pcp P. A fib with therapeutic coumadin - repat INR in AM - Coumadin tonight - Tele DVT prophylaxis: coumadin Discussed with: Patient, Anticipated discharge: 02/17 if SNF bed available Anticipated discharge place: [facility] A total of 25 minutes was spent on the care of this complex patient more than 50% of the time was spent in counseling and care coordination.
[2019-02-16] MEDS ORDERED: WARFARIN 5 MG TAB PO ONE (18:00)
[2019-02-16 22:23] LABS: Appearance,Urine Clear (Clear); Bilirubin,Urine Negative (Negative); Blood,Urine Negative (Negative); Color,Urine Yellow; Glucose,Urine (UA) Negative (Negative); Ketones,Urine Negative (Negative); Leukocyte Esterase,Urine Negative (Negative); Nitrite,Urine Negative (Negative); PH, Urine 6.5 (5.0-8.0); Protein,Urine Negative (Negative); Specific Gravity,Urine 1.015 (1.001-1.035); Urobilinogen,Urine <2.0 mg/dL (<2.0)
[2019-02-17 05:51] VITALS: TEMP 97.5
[2019-02-17] MEDS: SERTRALINE 25 MG TAB PO SCH (08:09)
[2019-02-17] MEDS: TAMSULOSIN 0.4 MG CAP.ER.24H PO SCH (08:09)
[2019-02-17] MEDS: QUEtiapine 25 MG TAB PO SCH (08:09)
[2019-02-17] MEDS: DIGOXIN 125 MCG TAB PO SCH (08:09)
[2019-02-17] MEDS: MEMANTINE 5 MG TAB PO SCH (08:09)
[2019-02-17 09:07] LABS: INR 2.5 (<1.2); Prothrombin Time 23.9 sec (9.0-12.0)
[2019-02-17 11:58] VITALS: BP 174/81; PULSE 62; RESP 17
--- NOTE | 2019-02-17 14:44 | P.DS ---
Providers Date of admission: 02/14/19 11:34 Expected date of discharge: 02/17/19 Attending physician: Carol Miller DO Consults: 02/12/19 12:46 Consult Physician Stat Consulting Provider: Alba Washington Consult Reason/Comments: Dizziness, accelerated hypertension Do you want consulting provider notified?: Yes Primary care physician: Eliel Vines Hospital Course: Discharge Diagnosis: Dizziness due to orthostatic hypotension Resting hypertension Genrealized weakness with gait instability HTN urgency Acute encephalopathy BPH P. A. Fib Hospital Course: Patient is an 88-year-old male with a past medical history of atrial fibrillation, coronary artery disease, CHF, hypertension, dyslipidemia, and prior CVA as well as multiple other comorbid conditions who sees Dr. Vines. He presented to the ER with complaints of dizziness. In the ER he underwent an extensive evaluation. His vital signs within normal limits on admission but blood pressure elevated to 184/81 shortly afterward. Initial laboratory analysis showed slight dehydration with Bun of 21 and creatinine of 1. Labs were otherwise within normal limits. Initial head CT showed no acute process. Initial EKG showed normal sinus rhythm without any significant ST-T wave changes. He was admitted for further evaluation for possible stroke due to his dizziness. He subsequently underwent carotid Dopplers which showed a 50-69% stenosis bilaterally. MRI brain showed moderate diffuse cerebral atrophy with moderate to severe chronic small vessel ischemic changes without significant change from prior studies. Cardiology was consulted. He was found to have positive orthostatic vital signs. They felt that his hypertension was not well controlled, how ever high risk for medications due to orthostatic hypotension. Echo with EF 55-60%, moderate LVH, no significant valvular dysfunction. He was very lethargic on 02/13 was not safe to discharge secondary to lethargy. Head CT was repeated which again showed no acute process. Blood work repeated without any changes. Family feels that lethargy was due to blood pressure medications a s he has had this issue when he took blood pressure meds in the past. More alert on 02/15 but still with blood pressure falling on standing. Seen by PT who recommends [facility] family in agreement. Patient not safe to discharge home, continues to be dizzy and unsteady on standing. Mentation improving daily Patient seen and examined at bedside. No chest pain or shortness of breath. No cough, still with dizziness on standing. Vital signs reviewed and stable. General: non toxic, no distress, appears at stated age Derm: warm, dry Head: atraumatic, normocephalic, symmetric Eyes: EOMI, no lid lag, anicteric sclera Mouth: no lip lesion, mucus membranes moist Cardiovascular: S1S2 reg, no murmur, positive posterior tibial pulse bilateral, Lungs: CTA bilateral, no rhonchi, no rales , no accessory muscle use Abdominal: soft, nontender to palpation, no guarding, no appreciable organomegaly Ext: no gross muscle atrophy, no edema, no contractures Neuro: CN II-XI grossly intact, no focal neuro deficits Psych: Alert, oriented, appropriate affect A total of minutes of time were spent preparing this complex discharge summary . Pertinent Studies: carotid Dopplers which showed a 50-69% stenosis bilaterally MRI brain showed moderate diffuse cerebral atrophy with moderate to severe chronic small vessel ischemic changes without significant change from prior studies. head CT showed no acute process Echo with EF 55-60%, moderate LVH, no significant valvular dysfunction. Patient Condition at Discharge: Fair Plan - Discharge Summary Discharge Rx Participant: Yes New Discharge Prescriptions: New Acetaminophen Tab [Tylenol] 650 mg PO Q6HR PRN tab PRN Reason: Fever and/ or Mild Pain Continue Sertraline [Zoloft] 25 mg PO DAILY Digoxin [Lanoxin] 125 mcg PO DAILY QUEtiapine FUMARATE 25 mg PO DAILY Tamsulosin [Flomax] 0.4 mg PO DAILY Memantine [Namenda] 5 mg PO DAILY Warfarin [Coumadin] 2.5 mg PO DAILY Discharge Medication List Digoxin [Lanoxin] 125 mcg PO DAILY 05/16/16 [History] Sertraline [Zoloft] 25 mg PO DAILY 05/16/16 [History] QUEtiapine FUMARATE 25 mg PO DAILY 08/02/16 [History] Tamsulosin [Flomax] 0.4 mg PO DAILY 08/02/16 [History] Memantine [Namenda] 5 mg PO DAILY 08/06/16 [History] Warfarin [Coumadin] 2.5 mg PO DAILY 08/06/16 [History] Acetaminophen Tab [Tylenol] 650 mg PO Q6HR PRN tab 02/17/19 [Rx] Follow up Appointment(s)/Referral(s): Eliel Vines MD [Primary Care Provider] - 1-2 days Activity/Diet/Wound Care/Special Instructions: Diet: regular diet, high salt Activity: as tolerated, compression stockings when up and ambulating If blood pressure is high please check sitting and standing blood pressures prior to considering medications. Fall precautions
[2019-02-17] MEDS ORDERED: WARFARIN 2.5 MG TAB PO ONE (18:00)
== END 2019-02-17 15:55 | DRG 312 ==
LOC: EC 15:27 → 1SOBS 19:41 → OBSVTOIN 02-14 11:34 → 3NMEDONC 02-14 15:18
PROVIDERS: ADMIT Internal Medicine; ATTEND Internal Medicine
DX: I95.1 Orthostatic hypotension (principal); G93.40 Encephalopathy, unspecified; E86.0 Dehydration; I11.0 Hypertensive heart disease with heart failure; I50.9 Heart failure, unspecified; R13.10 Dysphagia, unspecified; I65.23 Occlusion and stenosis of bilateral carotid arteries; F03.90 Unspecified dementia, unspecified severity, without behavioral disturbance, psychotic disturbance, mood disturbance, and anxiety; I48.0 Paroxysmal atrial fibrillation; I16.0 Hypertensive urgency; E78.5 Hyperlipidemia, unspecified; F32.9 Major depressive disorder, single episode, unspecified; F41.9 Anxiety disorder, unspecified; I25.10 Atherosclerotic heart disease of native coronary artery without angina pectoris; K21.9 Gastro-esophageal reflux disease without esophagitis; N40.0 Benign prostatic hyperplasia without lower urinary tract symptoms; H26.9 Unspecified cataract; R26.81 Unsteadiness on feet; R32 Unspecified urinary incontinence; Z79.01 Long term (current) use of anticoagulants; Z79.899 Other long term (current) drug therapy; Z87.891 Personal history of nicotine dependence; Z86.73 Personal history of transient ischemic attack (TIA), and cerebral infarction without residual deficits; Z88.8 Allergy status to other drugs, medicaments and biological substances; Z86.14 Personal history of Methicillin resistant Staphylococcus aureus infection; Z95.5 Presence of coronary angioplasty implant and graft; Z90.49 Acquired absence of other specified parts of digestive tract; Z80.42 Family history of malignant neoplasm of prostate; Z82.0 Family history of epilepsy and other diseases of the nervous system
CPT/HCPCS: 36415; 70450; 70551; 80048; 80053; 80162; 81003; 82533; 83605; 83735; 84100; 84443; 84484; 85025; 85027; 85610; 85730; 87086; 93005; 93306; 93880; 96360; 96361; 99285

== ENCOUNTER → 2019-05-28 | Outpatient (CLI) | payer MEDICARE, BC ==
[2019-05-28 10:55] LABS: INR 1.1 (<1.2); Prothrombin Time 11.2 sec (9.0-12.0)
== END | disposition home or self-care (01) ==
LOC: LABWHC1 09:51
PROVIDERS: ATTEND Dentist Oral and Maxillofacial Surgery
DX: D68.9 Coagulation defect, unspecified (principal)
CPT/HCPCS: 36415; 85610

== ENCOUNTER 2020-09-12 16:44 | Observation (INO) | payer MEDICARE, BC ==
[2020-09-12] MEDS ORDERED: SODIUM CHLORIDE 0.9% 1,000 ML IV STA (16:58)
--- NOTE | 2020-09-12 17:00 | ED ---
General Adult HPI - General Chief complaint: Weakness Stated complaint: altered mental status Time Seen by Provider: 09/12/20 16:45 Source: EMS Mode of arrival: EMS Limitations: altered mental status - History of Present Illness Initial comments: Is an 89-year-old male with a history of dementia, A. fib on Coumadin and digoxin, CVA, dehydration and UTI presents emergency department for mental status changes and generalized weakness. Mostly history obtained from EMS who obtained history from the daughter who is on her way to the hospital currently. The patient does not contribute much to the history. Per EMS the family has noted that he's not been quite himself for the last day or so area and this happens he typically is dehydrated which is why they sent him in. The patient denies any complaints currently however is very wary of answering any of my questions. - Related Data Home Medications Medication Instructions Recorded Confirmed Digoxin [Lanoxin] 125 mcg PO DAILY 05/16/16 02/11/19 Sertraline [Zoloft] 25 mg PO DAILY 05/16/16 02/11/19 QUEtiapine FUMARATE 25 mg PO DAILY 08/02/16 02/11/19 Tamsulosin [Flomax] 0.4 mg PO DAILY 08/02/16 02/11/19 Memantine [Namenda] 5 mg PO DAILY 08/06/16 02/11/19 Warfarin [Coumadin] 2.5 mg PO DAILY 08/06/16 02/11/19 Previous Rx's Medication Instructions Recorded Acetaminophen Tab [Tylenol] 650 mg PO Q6HR PRN tab 02/17/19 Allergies Allergy/AdvReac Type Severity Reaction Status Date / Time risperidone [From Risperdal] Allergy Unknown Verified 02/11/19 18:31 Review of Systems ROS Statement: Those systems with pertinent positive or pertinent negative responses have been documented in the HPI. ROS Other: All systems not noted in ROS Statement are negative. Past Medical History Past Medical History: Atrial Fibrillation, Coronary Artery Disease (CAD), Heart Failure, CVA/TIA, Dementia, GERD/Reflux, Hyperlipidemia, Hypertension, Memory Impairment, Prostate Disorder Additional Past Medical History / Comment(s): GERD(PER PAST MEDICAL CHART), "DIF FIUCLTY SWALLOWING LATELY" APPETITE DECREASED, UNSTEADY ON HIS FEET up until 2 days ago was walking with walker and assit in february 2016 epididymoorchitis/uti/sepsis, constipation History of Any Multi-Drug Resistant Organisms: MRSA Date of last positivie culture/infection: 04/06/16 MDRO Source:: urine Past Surgical History: Appendectomy, Heart Catheterization With Stent, Hernia Repair Additional Past Surgical History / Comment(s): JEVON CATARACT SX STATED PT'S VISION RT EYE IS BLURRY WAS TO HAVE LASER EYE SX BUT CANCELLED D/T THIS ADMIT.PILONIDAL CYST REMOVED, COLONOSCOPY.sinus sx Past Anesthesia/Blood Transfusion Reactions: No Reported Reaction Date of Last Stent Placement:: 08/21/12 Past Psychological History: Anxiety, Depression Past Alcohol Use History: None Reported Past Drug Use History: None Reported - Past Family History Father Family Medical History: Cancer, Prostate Disorder Additional Family Medical History / Comment(s): PROSTATE CANCER Mother Family Medical History: Dementia General Exam - General Exam Comments Initial Comments: Constitutional: Awake alert Appears comfortable Head: Normocephalic atraumatic Eyes: no conjunctival injection No scleral icterus EOMI pupils are 2 mm ENT: Oral mucosa appears tachy Neck: No JVD Supple Heart: Regular rate rhythm normal S1-S2 no murmurs Lungs: Clear to auscultation bilaterally No wheezing No rales Abdomen: Soft nondistended nontender Extremities: Non edematous DP pulses intact Radial pulses intact Neuro: Patient is alert and oriented to person No focal neurologic deficits Psych: Appropriate mood and affect Limitations: altered mental status Course Vital Signs 09/12/20 17:35 Temperature 97.4 F L Pulse Rate 87 Respiratory 16 Rate Blood Pressure 154/88 O2 Sat by Pulse 97 Oximetry EKG Findings - EKG Comments: EKG Findings:: EKG showing atrial fibrillation with a rate of 81. There is no abnormal ST segment changes or T-wave inversions. QTC is 413. Other intervals are normal. No ectopy. Medical Decision Making - Medical Decision Making Is an 89-year-old male who presents emergency department for mental status changes and weakness. There were no focal physical exam findings on examination. Blood work was obtained and did not show any obvious signs of dehydration. Blood counts were normal. Chest x-ray did show right upper lobe infiltrate which is concerning for possible aspiration pneumonia. The patient does reportedly cough with eating at times. I started the patient on Zosyn and azithromycin to cover for anaerobic bacteria as well. CT the head was reviewed and unremarkable. Patient we admitted for further evaluation by speech and IV antibiotics area Dr. Leung accepts the admission. - Lab Data Result diagrams: 09/12/20 17:18 09/12/20 17:18 Lab Results 09/12/20 09/12/20 09/12/20 Range/Units 17:18 17:18 17:18 WBC 7.2 (3.8-10.6) k/uL RBC 4.33 (4.30-5.90) m/uL Hgb 13.7 (13.0-17.5) gm/dL Hct 40.9 (39.0-53.0) % MCV 94.5 (80.0-100.0) fL MCH 31.7 (25.0-35.0) pg MCHC 33.6 (31.0-37.0) g/dL RDW 12.8 (11.5-15.5) % Plt Count 246 (150-450) k/uL MPV 7.4 Neutrophils % 75 % Lymphocytes % 17 % Monocytes % 5 % Eosinophils % 1 % Basophils % 1 % Neutrophils # 5.4 (1.3-7.7) k/uL Lymphocytes # 1.2 (1.0-4.8) k/uL Monocytes # 0.4 (0-1.0) k/uL Eosinophils # 0.1 (0-0.7) k/uL Basophils # 0.1 (0-0.2) k/uL PT 12.5 H (9.0-12.0) sec INR 1.2 H (<1.2) APTT 27.9 (22.0-30.0) sec Sodium 132 L (137-145) mmol/L Potassium 4.4 (3.5-5.1) mmol/L Chloride 99 (98-107) mmol/L Carbon Dioxide 27 (22-30) mmol/L Anion Gap 6 mmol/L BUN 19 (9-20) mg/dL Creatinine 0.91 (0.66-1.25) mg/dL Est GFR (CKD-EPI)AfAm 86 (>60 ml/min/1.73 sqM) Est GFR (CKD-EPI)NonAf 75 (>60 ml/min/1.73 sqM) Glucose 142 H (74-99) mg/dL Calcium 8.7 (8.4-10.2) mg/dL Magnesium 1.7 (1.6-2.3) mg/dL Total Bilirubin 0.5 (0.2-1.3) mg/dL AST 26 (17-59) U/L ALT 17 (4-49) U/L Alkaline Phosphatase 81 (38-126) U/L Total Protein 6.6 (6.3-8.2) g/dL Albumin 3.7 (3.5-5.0) g/dL Digoxin 0.8 ng/mL Disposition Clinical Impression: Aspiration pneumonia Disposition: ADMITTED IP TO THIS HOSP Condition: Stable Decision to Admit Reason: Admit from EC
--- NOTE | 2020-09-12 17:44 | XR ---
EXAMINATION TYPE: XR chest 1V portable DATE OF EXAM: 09/12/2020 COMPARISON: 08/06/2016 HISTORY: Altered mental status TECHNIQUE: Single view FINDINGS: Heart is normal. Thoracic aorta is atheromatous. There is some coarse interstitial density in the right lung. Left lung is clear. There is no heart failure. There are chest leads. IMPRESSION: There is a new mild pneumonia right upper lobe compared to old exam. Normal heart.
[2020-09-12 17:49] LABS: Basophils # (A) 0.1 k/uL (0-0.2); Basophils % (A) 1 %; Eosinophils # (A) 0.1 k/uL (0-0.7); Eosinophils % (A) 1 %; HCT 40.9 % (39.0-53.0); HGB 13.7 gm/dL (13.0-17.5); Lymphocytes # (A) 1.2 k/uL (1.0-4.8); Lymphocytes % (A) 17 %; MCH 31.7 pg (25.0-35.0); MCHC 33.6 g/dL (31.0-37.0); MCV 94.5 fL (80.0-100.0); Mean Platelet Volume 7.4; Monocytes # (A) 0.4 k/uL (0-1.0); Monocytes % (A) 5 %; Neutrophils # (A) 5.4 k/uL (1.3-7.7); Neutrophils % (A) 75 %; Platelet Count 246 k/uL (150-450); RBC 4.33 m/uL (4.30-5.90); RDW 12.8 % (11.5-15.5); WBC 7.2 k/uL (3.8-10.6)
[2020-09-12 18:00] LABS: INR 1.2 (<1.2); Partial Thromboplastin Time 27.9 sec (22.0-30.0); Prothrombin Time 12.5 sec (9.0-12.0)
[2020-09-12 18:01] LABS: Albumin 3.7 g/dL (3.5-5.0); Calcium 8.7 mg/dL (8.4-10.2); Digoxin 0.8 ng/mL; Magnesium 1.7 mg/dL (1.6-2.3); Potassium 4.4 mmol/L (3.5-5.1); Total Bilirubin 0.5 mg/dL (0.2-1.3); Total Protein 6.6 g/dL (6.3-8.2)
[2020-09-12] MEDS ORDERED: AZITHROMYCIN 500 MG in SODIUM CHLORIDE 0.9% 250 ML IVPB STA (18:17)
[2020-09-12] MEDS ORDERED: PIPERACILLIN-TAZOBACTAM 3.375 GM in SODIUM CHLORIDE 0.9% 100 ML IVPB STA (18:17)
--- NOTE | 2020-09-12 18:57 | CT ---
EXAMINATION TYPE: CT brain wo con DATE OF EXAM: 09/12/2020 COMPARISON: 02/13/2019 HISTORY: ams CT DLP: 1088.4 mGycm Automated exposure control for dose reduction was used. There is cerebral atrophy. There is no mass effect nor midline shift. There is no sign of intracrania l hemorrhage. The calvarium is intact. There is patchy hypodensity in the periventricular white matte r. Calvarium is intact. IMPRESSION: Cerebral atrophy and chronic small vessel ischemia. No acute intracranial abnormality. No change comp ared to old exam.
[2020-09-12] MEDS ORDERED: ACETAMINOPHEN TAB 325 MG TAB PO PRN (19:05)
[2020-09-12] MEDS ORDERED: NALOXONE 0.4 MG/ML 1 ML VIAL IV PRN (19:05)
--- NOTE | 2020-09-12 20:10 | P.HPIM ---
History of Present Illness H&P Date: 09/12/20 The patient is an 89-year-old male with a PMH of dementia, permanent A. fib on Eliquis, history of TIA, BPH, and hypertension (not on medications) who was brought into the emergency room due to weakness and dehydration. The history was provided by the daughter (Debo) at the bedside. She noted that the patient lives with her mother and that they are normally able to perform all of her ADLs with some help (daily caregiver for multiple hours). The patient routinely ambulates with a walker though does have chronic aspirations and multiple hospitalizations for dehydration due to poor oral intake. She notes that over the past few days, the patient appeared to be somewhat more tired And that he had not been eating or drinking as much. She notes that the patient has a fear of water and that he takes most of his food in a liquid form via straw. She notes that he coughs multiple times throughout each meal. The patient was not able to provide much meaningful history but denied having active pain. Discussed the case with the patient's other daughter (Birgit Back [phone]) via telephone who is co-POA with Debo and noted that the patient is indeed a no code and that they do not wish for him to undergo any forms of life support even on an elective basis. Patient underwent an extensive evaluation in the emergency room which was reviewed with a CT brain showing cerebral atrophy with no acute abnormalities. Chest x-ray revealed a new mild right upper lobe pneumonia with EKG showing A. fib with left axis deviation at 81 bpm. Laboratory evaluation was reviewed and was remarkable for a sodium 132, glucose 142, therapeutic digoxin level, BUN 19, creatinine 0.91, and INR 1.2. Review of Systems ROS unobtainable: due to mental status Past Medical History Past Medical History: Atrial Fibrillation, Coronary Artery Disease (CAD), Heart Failure, CVA/TIA, Dementia, GERD/Reflux, Hyperlipidemia, Hypertension, Memory Impairment, Prostate Disorder Additional Past Medical History / Comment(s): GERD(PER PAST MEDICAL CHART), "DIFFIUCLTY SWALLOWING LATELY" APPETITE DECREASED, UNSTEADY ON HIS FEET up until 2 days ago was walking with walker and assit in february 2016 epididymoorc hitis/uti/sepsis, constipation History of Any Multi-Drug Resistant Organisms: MRSA Date of last positivie culture/infection: 04/06/16 MDRO Source:: urine Past Surgical History: Appendectomy, Heart Catheterization With Stent, Hernia Repair Additional Past Surgical History / Comment(s): JEVON CATARACT SX STATED PT'S VISION RT EYE IS BLURRY WAS TO HAVE LASER EYE SX BUT CANCELLED D/T THIS ADMIT.PILONIDAL CYST REMOVED, COLONOSCOPY.sinus sx Past Anesthesia/Blood Transfusion Reactions: No Reported Reaction Date of Last Stent Placement:: 08/21/12 Past Psychological History: Anxiety, Depression Past Alcohol Use History: None Reported Past Drug Use History: None Reported - Past Family History Father Family Medical History: Cancer, Prostate Disorder Additional Family Medical History / Comment(s): PROSTATE CANCER Mother Family Medical History: Dementia Medications and Allergies Home Medications Medication Instructions Recorded Confirmed Type Digoxin [Lanoxin] 125 mcg PO DAILY 05/16/16 09/12/20 History Sertraline [Zoloft] 25 mg PO DAILY 05/16/16 09/12/20 History Tamsulosin [Flomax] 0.4 mg PO DAILY 08/02/16 09/12/20 History Memantine [Namenda] 5 mg PO DAILY 08/06/16 09/12/20 History Apixaban [Eliquis] 2.5 mg PO BID 09/12/20 09/12/20 History Allergies Allergy/AdvReac Type Severity Reaction Status Date / Time risperidone [From Risperdal] Allergy Unknown Verified 09/12/20 19:40 Physical Exam Vitals: Vital Signs Temp Pulse Resp BP Pulse Ox 09/12/20 17:35 97.4 F L 87 16 154/88 97 Intake and Output 09/12/20 09/12/20 09/12/20 06:59 14:59 22:59 Other: Weight 54.431 kg General: non toxic, no distress, appears at stated age, cachectic Derm: no unusual rashes/lesions no unusual ecchymoses, warm, dry Head: atraumatic, normocephalic, symmetric Eyes: EOMI, no lid lag, anicteric sclera, pupils equal round reactive to light ENT: Nose and ears atraumatic, no thrush, no pharyngeal erythema Neck: No thyromegaly, no cervical lymphadenopathy, trachea midline, supple Mouth: no lip lesion, mucus membranes somewhat dry Cardiovascular: S1S2 irregularly irregular, no murmur, positive posterior tibial pulse bilateral, no edema, capillary refill less than 2 seconds Lungs: Scattered rhonchi, no rales or wheezing appreciated, no accessory muscle use Abdominal: soft, nontender to palpation, no guarding, no appreciable organomegaly, normal bowel sounds Ext: no gross muscle atrophy, no contractures Neuro: Patient not following all directions, moving all extremities, no focal deficits noted Psych: Paranoid, awake, oriented to person and place, not fully oriented to time Results CBC & Chem 7: 09/12/20 17:18 09/12/20 17:18 Labs: Abnormal Lab Results - Last 24 Hours (Table) 09/12/20 09/12/20 Range/Units 17:18 17:18 PT 12.5 H (9.0-12.0) sec INR 1.2 H (<1.2) Sodium 132 L (137-145) mmol/L Glucose 142 H (74-99) mg/dL Assessment and Plan Plan: Right upper lobe pneumonia, with suspicion for possible chronic aspiration -Continue with antibiotics with Unasyn and azithromycin -IV fluids -MEAT AND SEAFOOD CLERK evaluation -Aspiration precautions -Nothing by mouth for now Mild dehydration -Continue with IV fluids Dementia with debility -PT consult -Family open to home physical therapy but does not wish for rehab placement -Fall precautions -Continue with home med Namenda Hyponatremia -Likely secondary to poor oral intake -Continue with IV fluids and monitor Permanent A. fib, on Eliquis -Continue with home meds DVT prophylaxis -Eliquis The patient is admitted with an anticipated less than 2 midnight stay for evaluation of pneumonia CODE STATUS: No Code Discussed with: Patient Anticipated discharge date: in am Anticipated discharge place: home w/ PT A total of 40 minutes was spent on the care of this complex patient more than 50% of the time was spent in counseling and care coordination.
--- NOTE | 2020-09-12 20:14 | P.PN ---
Progress Note - Text Progress Note Date: 09/12/20 Advanced Care Planning Active Diagnosis: Dementia, Pneumonia Persons present: Patient, Daughters (Debo - in person; Birgit - via telephone) Summary: Discussed the patient's goals of care separately with both daughters (Co-POAs) in great detail. They noted that the patient is a No-Code and that they do not wish for him to undergo any forms of life-support. They noted that this is in line with the patient's wishes and that in light of his gradually worsening dementia and advanced age, that they do not feel he would benefit from heroic or overly aggressive measures. They noted that he should be allowed to pass naturally if his time came. They further elaborated that they do not wish for him to go to a rehab facility since he has previously been admitted there multiple times and would not be a good candidate due to his paranoia. They however would wish for him to undergo PT evaluation for possible home physical therapy, if he qualifies. Will make the patient a No-Code. Time spent: Total time spent face to face in education and discussion directly related to advanced care plannin minutes
[2020-09-12] MEDS: APIXABAN 2.5 MG TABLET PO SCH (20:42)
[2020-09-12] MEDS: AMPICILLIN-SULBACTAM 1.5 GM in SODIUM CHLORIDE 0.9% 50 ML IVPB SCH (23:58)
[2020-09-13] MEDS: AMPICILLIN-SULBACTAM 1.5 GM in SODIUM CHLORIDE 0.9% 50 ML IVPB SCH ×4 (06:30→21:14)
[2020-09-13] MEDS: APIXABAN 2.5 MG TABLET PO SCH ×3 (08:55→21:18)
[2020-09-13] MEDS: MEMANTINE 5 MG TAB PO SCH (09:28)
[2020-09-13] MEDS: TAMSULOSIN 0.4 MG CAP.ER.24H PO SCH (09:29)
[2020-09-13] MEDS: SERTRALINE 25 MG TAB PO SCH (09:29)
[2020-09-13 09:39] LABS: African American GFR (CKD) 68.6 (60.0-200.0); Anion Gap 3.7 mmol/L (4.00-12.00); BUN/Creat Ratio 13.64 Ratio (12.00-20.00); Calcium 8.5 mg/dL (8.7-10.3); Carbon Dioxide 29.3 mmol/L (21.6-31.8); Non-African American GFR(CKD) 59.2 (60.0-200.0)
--- NOTE | 2020-09-13 10:39 | P.PN ---
Subjective Progress Note Date: 09/13/20 Principal diagnosis: Pneumonia The patient is currently doing well, denies shortness of breath or chest pain. No overnight events. Objective - Vital Signs Vital signs: Vital Signs Temp 97.5 F L 09/13/20 07:38 Pulse 64 09/13/20 07:38 Resp 21 09/13/20 07:38 BP 143/83 09/13/20 07:38 Pulse Ox 95 09/13/20 07:38 Intake & Output 09/12/20 09/13/20 09/13/20 18:59 06:59 18:59 Weight 54.431 kg 54.431 kg Other: Voiding Method Diaper # Voids 4 - Labs CBC & Chem 7: 09/12/20 17:18 09/13/20 05:47 Labs: Abnormal Lab Results - Last 24 Hours (Table) 09/12/20 09/12/20 09/13/20 Range/Units 17:18 17:18 05:47 PT 12.5 H (9.0-12.0) sec INR 1.2 H (<1.2) Sodium 132 L (137-145) mmol/L Anion Gap 3.70 L (4.00-12.00) mmol/L Est GFR (CKD-EPI)NonAf 59.2 L (60.0-200.0) Glucose 142 H (74-99) mg/dL Calcium 8.5 L (8.7-10.3) mg/dL Assessment and Plan Plan: Right upper lobe pneumonia, with suspicion for possible chronic aspiration -Continue with antibiotics with Unasyn and azithromycin -IV fluids -RETORT FORKER evaluation pending -Aspiration precautions -Nothing by mouth for now Mild dehydration -Continue with IV fluids Dementia with debility -PT consult -Family open to home physical therapy but does not wish for rehab placement -Fall precautions -Continue with home med Namenda Hyponatremia -Likely secondary to poor oral intake -Resolved with IV fluids Permanent A. fib, on Eliquis -Continue with home meds DVT prophylaxis -Eliquis CODE STATUS: No Code Discussed with: Patient Anticipated discharge date: in am Anticipated discharge place: home w/ PT A total of 30 minutes was spent on the care of this complex patient more than 50% of the time was spent in counseling and care coordination.
[2020-09-13 13:29] VITALS: BMI 15.4
[2020-09-13] MEDS ORDERED: AZITHROMYCIN 500 MG in SODIUM CHLORIDE 0.9% 250 ML IVPB SCH (21:00)
[2020-09-14] MEDS: AMPICILLIN-SULBACTAM 1.5 GM in SODIUM CHLORIDE 0.9% 50 ML IVPB SCH ×2 (01:52→08:33)
[2020-09-14 07:46] VITALS: BP 166/95; PULSE 75; RESP 19; TEMP 97.8
[2020-09-14] MEDS: APIXABAN 2.5 MG TABLET PO SCH (08:32)
[2020-09-14] MEDS: SERTRALINE 25 MG TAB PO SCH (08:33)
[2020-09-14] MEDS: TAMSULOSIN 0.4 MG CAP.ER.24H PO SCH (08:33)
[2020-09-14] MEDS: MEMANTINE 5 MG TAB PO SCH (08:33)
--- NOTE | 2020-09-14 09:22 | P.DS ---
Providers Date of admission: 09/12/20 19:05 Expected date of discharge: 09/14/20 Attending physician: Nayely Leung MD Primary care physician: Alba Woods MD Hospital Course: 89-year-old male with a PMH of dementia, permanent A. fib on Eliquis, history of TIA, BPH, and hypertension (not on medications) who was brought into the emergency room due to weakness and dehydration. The history was provided by the daughter (Debo). Daughter stated that the patient lives with her mother and that they are normally able to perform all of her ADLs with help (daily caregiver for multiple hours). The patient routinely ambulates with a walker. Daughter also stated that he does have chronic aspirations and multiple hospitalizations for dehydration due to poor oral intake. Over the past few days, the patient appeared to be somewhat more tired and he has not been eating or drinking as much. Patient coughs multiple times throughout each meal according to daughter. In the ER he had an extensive evaluation, with a CT brain showing cerebral atrophy with no acute abnormalities. Chest x-ray revealed a new mild right upper lobe pneumonia with EKG showing A. fib with left axis deviation at 81 bpm. Laboratory evaluation was reviewed and was remarkable for a sodium 132, glucose 142, therapeutic digoxin level, BUN 19, creatinine 0.91, and INR 1.2. Patient was subsequently admitted for dehydration and aspiration pneumonia treatment. He was started on IV fluids as well as Unasyn. He did undergo a swallow evaluation by speech therapy yesterday and according to the note patient was not very cooperative with a therapist. He does seem to be more prone to aspirate with thin liquids. Outpatient speech therapy was recommended. I discussed that with his daughter as well as the social work lecturer and this will be arranged on an outpatient basis. Throughout his hospitalization patient did not have any fevers or low oxygen saturation. He did not require oxygen. A prescription for hospital bed was provided to keep his head up by more than 30. Patient will be discharged on oral antibiotics. Patient Condition at Discharge: Stable Plan - Discharge Summary Discharge Rx Participant: No New Discharge Prescriptions: Continue Sertraline [Zoloft] 25 mg PO DAILY Digoxin [Lanoxin] 125 mcg PO DAILY Tamsulosin [Flomax] 0.4 mg PO DAILY Memantine [Namenda] 5 mg PO DAILY Apixaban [Eliquis] 2.5 mg PO BID Discharge Medication List Digoxin [Lanoxin] 125 mcg PO DAILY 05/16/16 [History] Sertraline [Zoloft] 25 mg PO DAILY 05/16/16 [History] Tamsulosin [Flomax] 0.4 mg PO DAILY 08/02/16 [History] Memantine [Namenda] 5 mg PO DAILY 08/06/16 [History] Apixaban [Eliquis] 2.5 mg PO BID 09/12/20 [History] Follow up Appointment(s)/Referral(s): [facility], [NON-STAFF] - As Needed None,Stated [REFERRING] - 1-2 days
[2020-09-14 09:45] LABS: Appearance,Urine Clear (Clear); Bilirubin,Urine Negative (Negative); Blood,Urine Negative (Negative); Color,Urine Light Yellow; Glucose,Urine (UA) Negative (Negative); Ketones,Urine 1+ (Negative); Leukocyte Esterase,Urine Negative (Negative); Nitrite,Urine Negative (Negative); PH, Urine 6.5 (5.0-8.0); Protein,Urine Negative (Negative); Specific Gravity,Urine 1.012 (1.001-1.035); Urobilinogen,Urine <2.0 mg/dL (<2.0)
== END 2020-09-14 12:56 ==
LOC: EC 16:44 → 4SSUR 19:05
PROVIDERS: ADMIT Internal Medicine; ATTEND Internal Medicine
DX: J69.0 Pneumonitis due to inhalation of food and vomit (principal); E86.0 Dehydration; E87.1 Hypo-osmolality and hyponatremia; I48.21 Permanent atrial fibrillation; I25.10 Atherosclerotic heart disease of native coronary artery without angina pectoris; I11.0 Hypertensive heart disease with heart failure; I50.9 Heart failure, unspecified; K21.9 Gastro-esophageal reflux disease without esophagitis; E78.5 Hyperlipidemia, unspecified; N42.9 Disorder of prostate, unspecified; H53.8 Other visual disturbances; F41.9 Anxiety disorder, unspecified; F32.9 Major depressive disorder, single episode, unspecified; N40.0 Benign prostatic hyperplasia without lower urinary tract symptoms; G31.9 Degenerative disease of nervous system, unspecified; F02.80 Dementia in other diseases classified elsewhere, unspecified severity, without behavioral disturbance, psychotic disturbance, mood disturbance, and anxiety; F22 Delusional disorders; Z20.828 Contact with and (suspected) exposure to other viral communicable diseases; Z66 Do not resuscitate; Z79.01 Long term (current) use of anticoagulants; Z79.899 Other long term (current) drug therapy; Z86.73 Personal history of transient ischemic attack (TIA), and cerebral infarction without residual deficits; Z86.39 Personal history of other endocrine, nutritional and metabolic disease; Z87.440 Personal history of urinary (tract) infections; Z88.8 Allergy status to other drugs, medicaments and biological substances; Z87.438 Personal history of other diseases of male genital organs; Z86.19 Personal history of other infectious and parasitic diseases; Z87.19 Personal history of other diseases of the digestive system; Z86.14 Personal history of Methicillin resistant Staphylococcus aureus infection; Z90.89 Acquired absence of other organs; Z95.5 Presence of coronary angioplasty implant and graft; Z98.890 Other specified postprocedural states; Z98.41 Cataract extraction status, right eye; Z98.42 Cataract extraction status, left eye; Z87.2 Personal history of diseases of the skin and subcutaneous tissue; Z80.42 Family history of malignant neoplasm of prostate; Z81.8 Family history of other mental and behavioral disorders
CPT/HCPCS: 96361 ×3; 96366 ×2; 96367; 96368; 96365; 99285; 36415; 93005; 97162; 92610; 92526; 80053; 80048; 80162; 83735; 85025; 85610; 85730; 81003; 87040; 87635; 71045; 70450; G0378 ×3; J2543; J0456 ×2; J0295 ×3

== ENCOUNTER 2020-10-04 10:09 | Inpatient (IN) | payer MEDICARE, BC ==
[2020-10-04] MEDS ORDERED: SODIUM CHLORIDE 0.9% 1,000 ML IV STA (10:18)
--- NOTE | 2020-10-04 10:24 | ED ---
Altered Mental Status HPI - General Chief Complaint: Altered Mental Status Stated Complaint: Altered Mental Status Time Seen by Provider: 10/04/20 10:09 Source: EMS, RN notes reviewed, old records reviewed Mode of arrival: EMS Limitations: altered mental status - History of Present Illness Initial Comments: This a 89-year-old male with a prior history of possible CVA also history of UTI COPD sepsis in the past and A. fib who apparently was just placed on Elaquis with the last couple days who also fell a couple days ago and did not seek any evaluation who apparently was found sitting in a toilet at home today unresponsive. He was brought in by EMS. He was noted have a blood glucose of 165. After arrival here he seemed little more alert but still confused. No evidence of focal deficits as per paramedics. He did have a recent in-hospital treatment for pneumonia earlier this month. She has apparently had decreased oral intake over last couple days also. No other complaints no other modifying factors at this time MD Complaint: altered mental status, confusion - Related Data Home Medications Medication Instructions Recorded Confirmed Digoxin [Lanoxin] 125 mcg PO DAILY 05/16/16 10/04/20 Sertraline [Zoloft] 25 mg PO DAILY 05/16/16 10/04/20 Tamsulosin [Flomax] 0.4 mg PO DAILY 08/02/16 10/04/20 Memantine [Namenda] 5 mg PO DAILY 08/06/16 10/04/20 Apixaban [Eliquis] 2.5 mg PO BID 09/12/20 10/04/20 Allergies Allergy/AdvReac Type Severity Reaction Status Date / Time risperidone [From Risperdal] Allergy Unknown Verified 10/04/20 10:45 Review of Systems ROS Statement: Those systems with pertinent positive or pertinent negative responses have been documented in the HPI. ROS Other: All systems not noted in ROS Statement are negative. Limitations: ROS unobtainable due to patients medical condition Past Medical History Past Medical History: Atrial Fibrillation, Coronary Artery Disease (CAD), Heart Failure, CVA/TIA, Dementia, GERD/Reflux, Hyperlipidemia, Hypertension, Memory Impairment, Prostate Disorder Additional Past Medical History / Comment(s): GERD(PER PAST MEDICAL CHART), "DIFFIUCLTY SWALLOWING LATELY" APPETITE DECREASED, UNSTEADY ON HIS FEET up until 2 days ago was walking with walker and assit in february 2016 epididymoorchitis/uti/sepsis, constipation History of Any Multi-Drug Resistant Organisms: MRSA Date of last positivie culture/infection: 04/06/16 MDRO Source:: urine Past Surgical History: Appendectomy, Heart Catheterization With Stent, Hernia Repair Additional Past Surgical History / Comment(s): JEVON CATARACT SX STATED PT'S VISION RT EYE IS BLURRY WAS TO HAVE LASER EYE SX BUT CANCELLED D/T THIS ADMIT.PILONIDAL CYST REMOVED, COLONOSCOPY.sinus sx Past Anesthesia/Blood Transfusion Reactions: No Reported Reaction Date of Last Stent Placement:: 08/21/12 Past Psychological History: Anxiety, Depression Past Alcohol Use History: None Reported Past Drug Use History: None Reported - Past Family History Father Family Medical History: Cancer, Prostate Disorder Additional Family Medical History / Comment(s): PROSTATE CANCER Mother Family Medical History: Dementia General Exam - General Exam Comments Initial Comments: This is a well-developed well-nourished awake lethargic male Limitations: altered mental status General appearance: lethargic Head exam: Present: atraumatic, normocephalic, normal inspection Eye exam: Present: normal appearance, PERRL, EOMI. Absent: scleral icterus, conjunctival injection, periorbital swelling ENT exam: Present: mucous membranes dry, mucous membranes moist Neck exam: Present: normal inspection, full ROM, other (No stridor JVD or bruits). Absent: tenderness, meningismus, lymphadenopathy Respiratory exam: Present: normal lung sounds bilaterally. Absent: respiratory distress, wheezes, rales, rhonchi, stridor Cardiovascular Exam: Present: irregular rhythm. Absent: systolic murmur, diastolic murmur, rubs, gallop, clicks GI/Abdominal exam: Present: soft, normal bowel sounds. Absent: distended, tenderness, guarding, rebound, rigid Extremities exam: Present: normal inspection, full ROM, normal capillary refill. Absent: tenderness, pedal edema, joint swelling, calf tenderness Back exam: Present: normal inspection Neurological exam: Present: alert, altered, CN II-XII intact Psychiatric exam: Present: other (Unable to evaluate) Skin exam: Present: warm, dry, intact, normal color. Absent: rash Course Vital Signs 10/04/20 10/04/20 10/04/20 10:11 10:22 11:00 Temperature 97.3 F L Pulse Rate 82 Respiratory 16 16 Rate Blood Pressure 105/83 105/83 133/90 O2 Sat by Pulse 96 100 99 Oximetry 10/04/20 12:00 Temperature Pulse Rate 68 Respiratory 16 Rate Blood Pressure 120/91 O2 Sat by Pulse 97 Oximetry - Reevaluation(s) Reevaluation #1: 10/04/20 13:32 Reevaluation patient finds he is more responsive. Medical Decision Making - Medical Decision Making I did discuss findings with patient and family as well as Dr. Miller will be admitted and evaluated for TIA with consultation to neurology. - Lab Data Result diagrams: 10/04/20 10:21 10/04/20 10:21 Lab Results 10/04/20 10/04/20 10/04/20 Range/Units 10:21 10: 10:21 WBC 9.6 (3.8-10.6) k/uL RBC 4.72 (4.30-5.90) m/uL Hgb 15.1 (13.0-17.5) gm/dL Hct 45.0 (39.0-53.0) % MCV 95.3 (80.0-100.0) fL MCH 31.9 (25.0-35.0) pg MCHC 33.5 (31.0-37.0) g/dL RDW 13.2 (11.5-15.5) % Plt Count 237 (150-450) k/uL MPV 7.4 Neutrophils % 66 % Lymphocytes % 27 % Monocytes % 5 % Eosinophils % 1 % Basophils % 1 % Neutrophils # 6.3 (1.3-7.7) k/uL Lymphocytes # 2.6 (1.0-4.8) k/uL Monocytes # 0.4 (0-1.0) k/uL Eosinophils # 0.1 (0-0.7) k/uL Basophils # 0.1 (0-0.2) k/uL PT 12.6 H (9.0-12.0) sec INR 1.2 H (<1.2) APTT 24.6 (22.0-30.0) sec Sodium 135 L (137-145) mmol/L Potassium 4.5 (3.5-5.1) mmol/L Chloride 99 (98-107) mmol/L Carbon Dioxide 26 (22-30) mmol/L Anion Gap 10 mmol/L BUN 19 (9-20) mg/dL Creatinine 1.09 (0.66-1.25) mg/dL Est GFR (CKD-EPI)AfAm 69 (>60 ml/min/1.73 sqM) Est GFR (CKD-EPI)NonAf 60 (>60 ml/min/1.73 sqM) Glucose 145 H (74-99) mg/dL Calcium 9.3 (8.4-10.2) mg/dL Total Bilirubin 1.1 (0.2-1.3) mg/dL AST 22 (17-59) U/L ALT 16 (4-49) U/L Alkaline Phosphatase 88 (38-126) U/L Ammonia (<30) umol/L Creatine Kinase 44 L (55-170) U/L Troponin I (0.000-0.034) ng/mL Total Protein 7.2 (6.3-8.2) g/dL Albumin 4.0 (3.5-5.0) g/dL Urine Color Urine Appearance (Clear) Urine pH (5.0-8.0) Ur Specific [place] (1.001-1.035) Urine Protein (Negative) Urine Glucose (UA) (Negative) Urine Ketones (Negative) Urine Blood (Negative) Urine Nitrite (Negative) Urine Bilirubin (Negative) Urine Urobilinogen (<2.0) mg/dL Ur Leukocyte Esterase (Negative) Urine Opiates Screen (NotDetected) Ur Oxycodone Screen (NotDetected) Urine Methadone Screen (NotDetected) Ur Propoxyphene Screen (NotDetected) Ur Barbiturates Screen (NotDetected) U Tricyclic Antidepress (NotDetected) Ur Phencyclidine Scrn (NotDetected) Ur Amphetamines Screen (NotDetected) U Methamphetamines Scrn (NotDetected) U Benzodiazepines Scrn (NotDetected) Urine Cocaine Screen (NotDetected) U Marijuana (THC) Screen (NotDetected) 10/04/20 10/04/20 10/04/20 Range/Units 10:21 10:21 11:54 WBC (3.8-10.6) k/uL RBC (4.30-5.90) m/uL Hgb (13.0-17.5) gm/dL Hct (39.0-53.0) % MCV (80.0-100.0) fL MCH (25.0-35.0) pg MCHC (31.0-37.0) g/dL RDW (11.5-15.5) % Plt Count (150-450) k/uL MPV Neutrophils % % Lymphocytes % % Monocytes % % Eosinophils % % Basophils % % Neutrophils # (1.3-7.7) k/uL Lymphocytes # (1.0-4.8) k/uL Monocytes # (0-1.0) k/uL Eosinophils # (0-0.7) k/uL Basophils # (0-0.2) k/uL PT (9.0-12.0) sec INR (<1.2) APTT (22.0-30.0) sec Sodium (137-145) mmol/L Potassium (3.5-5.1) mmol/L Chloride (98-107) mmol/L Carbon Dioxide (22-30) mmol/L Anion Gap mmol/L BUN (9-20) mg/dL Creatinine (0.66-1.25) mg/dL Est GFR (CKD-EPI)AfAm (>60 ml/min/1.73 sqM) Est GFR (CKD-EPI)NonAf (>60 ml/min/1.73 sqM) Glucose (74-99) mg/dL Calcium (8.4-10.2) mg/dL Total Bilirubin (0.2-1.3) mg/dL AST (17-59) U/L ALT (4-49) U/L Alkaline Phosphatase (38-126) U/L Ammonia <9 (<30) umol/L Creatine Kinase (55-170) U/L Troponin I 0.015 (0.000-0.034) ng/mL Total Protein (6.3-8.2) g/dL Albumin (3.5-5.0) g/dL Urine Color Yellow Urine Appearance Clear (Clear) Urine pH 6.5 (5.0-8.0) Ur Specific [place] 1.016 (1.001-1.035) Urine Protein Negative (Negative) Urine Glucose (UA) Negative (Negative) Urine Ketones Negative (Negative) Urine Blood Negative (Negative) Urine Nitrite Negative (Negative) Urine Bilirubin Negative (Negative) Urine Urobilinogen <2.0 (<2.0) mg/dL Ur Leukocyte Esterase Negative (Negative) Urine Opiates Screen Not Detected (NotDetected) Ur Oxycodone Screen Not Detected (NotDetected) Urine Methadone Screen Not Detected (NotDetected) Ur Propoxyphene Screen Not Detected (NotDetected) Ur Barbiturates Screen Not Detected (NotDetected) U Tricyclic Antidepress Not Detected (NotDetected) Ur Phencyclidine Scrn Not Detected (NotDetected) Ur Amphetamines Screen Not Detected (NotDetected) U Methamphetamines Scrn Not Detected (NotDetected) U Benzodiazepines Scrn Not Detected (NotDetected) Urine Cocaine Screen Not Detected (NotDetected) U Marijuana (THC) Screen Not Detected (NotDetected) - EKG Data -: EKG Interpreted by Me EKG Comments: Atrial fibrillation rate 91 QRS 100 daily since QTC 376/462 left anterior fascicular block poor R-wave progression - Radiology Data Radiology results: report reviewed (Imaging reviewed no acute findings are seen), image reviewed Critical Care Time Critical Care Time: Yes Total Critical Care Time: 31 Critical Care Time: Critical care time includes initial presentation with history physical labs x- rays discussed with paramedics upon arrival multiple reevaluation the patient discussion the patient family regarding findings discussion with the admitting physician admission orders and documentation of the above Disposition Clinical Impression: Transient ischemic attack, Delirium due to general medical condition Disposition: ADMITTED IP TO THIS [facility] Condition: Fair Referrals: Alba Woods MD [Primary Care Provider] - 1-2 days
[2020-10-04 10:36] LABS: Basophils # (A) 0.1 k/uL (0-0.2); Basophils % (A) 1 %; Eosinophils # (A) 0.1 k/uL (0-0.7); Eosinophils % (A) 1 %; HGB 15.1 gm/dL (13.0-17.5); Lymphocytes # (A) 2.6 k/uL (1.0-4.8); Lymphocytes % (A) 27 %; MCH 31.9 pg (25.0-35.0); MCHC 33.5 g/dL (31.0-37.0); MCV 95.3 fL (80.0-100.0); Mean Platelet Volume 7.4; Monocytes # (A) 0.4 k/uL (0-1.0); Monocytes % (A) 5 %; Neutrophils # (A) 6.3 k/uL (1.3-7.7); Neutrophils % (A) 66 %; Platelet Count 237 k/uL (150-450); RBC 4.72 m/uL (4.30-5.90); RDW 13.2 % (11.5-15.5); WBC 9.6 k/uL (3.8-10.6)
[2020-10-04 10:45] LABS: INR 1.2 (<1.2); Partial Thromboplastin Time 24.6 sec (22.0-30.0); Prothrombin Time 12.6 sec (9.0-12.0)
[2020-10-04 10:46] LABS: Calcium 9.3 mg/dL (8.4-10.2); Potassium 4.5 mmol/L (3.5-5.1); Total Bilirubin 1.1 mg/dL (0.2-1.3); Total Protein 7.2 g/dL (6.3-8.2)
--- NOTE | 2020-10-04 11:07 | XR ---
EXAMINATION TYPE: XR chest 1V portable DATE OF EXAM: 10/04/2020 Comparison: 09/12/2020 Clinical History: 89-year-old male confusion, altered mental status Findings: Heart upper limits of normal in size. Pulmonary vasculature within normal limits. Atherosclerotic arc h calcifications. No consolidation or pleural effusion. Impression: Heart upper limits of normal in size. No acute process seen. Previous right upper lobe infiltrate ryann ws improvement.
--- NOTE | 2020-10-04 11:34 | CT ---
EXAMINATION TYPE: CT brain wo con DATE OF EXAM: 10/04/2020 COMPARISON: 09/12/2020 HISTORY: Code Stroke. Fall 2 days ago on blood thinners CT DLP: [address] of the brain was performed. The ventricles, basal cisterns and sulci overlying the cerebral convexities demonstrate moderate enla rgement. There is no evidence for intracranial hemorrhage or sulcal effacement. There is decreased attenuation about the periventricular white matter and deep white matter of both c erebral hemispheres, compatible with chronic small vessel ischemia. Differential diagnosis does inclu de demyelination. No mass effects are seen.No midline shift. Osseous calvarium is intact. If symptoms persist consider MRI. IMPRESSION: 1. Age related atrophic and chronic small vessel ischemic change without acute intracranial process s een at this time.
--- NOTE | 2020-10-04 11:42 | CT ---
EXAMINATION TYPE: CT angio head neck DATE OF EXAM: 10/04/2020 COMPARISON: None HISTORY: CODE STROKE. Fall 2 days ago on [facility] DLP: 394.3 mGycm CONTRAST: Performed without and with IV Contrast, patient injected with 65 ml mL of Isovue 370. Combination Contrast CTA cervical carotids and [place] CTA cervical carotids with 3-D recons truction Contrast CTA of the cervical carotids was performed 3-D reconstruction imaging obtained at a separate workstation. Right carotid system: Mild plaque is seen of the right common carotid artery. There is moderate plaq ue also noted at the carotid bulb and proximal ICA. Estimated diameter reduction is 50-60%. ECA is patent. Right vertebral artery appears unremarkable. Left carotid system: Mild plaque is seen of the left common carotid artery. There is moderate plaque also noted at the carotid bulb and proximal ICA. Estimated diameter reduction is greater than 80% ECA is patent. Left vertebral artery appears unremarkable. IMPRESSION: 1. Moderate plaque proximal left ICA estimated diameter reduction of greater than 80%. CTA [place] with 3-D reconstruction Contrast CTA of the [place] was performed 3-D reconstruction imaging obtained at a separate workstation. Vertebrobasilar system as well as intracranial portions of the internal carotid arteries and their ma anyi tributaries are patent. I do not see evidence for sizable aneurysm or vascular malformation. Pl ease note MRI provides greater sensitivity and specificity. Visualized brain appears grossly unremar kable. IMPRESSION: 1. No significant abnormality.
[2020-10-04 12:12] LABS: Appearance,Urine Clear (Clear); Bilirubin,Urine Negative (Negative); Blood,Urine Negative (Negative); Color,Urine Yellow; Glucose,Urine (UA) Negative (Negative); Ketones,Urine Negative (Negative); Leukocyte Esterase,Urine Negative (Negative); Nitrite,Urine Negative (Negative); PH, Urine 6.5 (5.0-8.0); Protein,Urine Negative (Negative); Specific Gravity,Urine 1.016 (1.001-1.035); Urobilinogen,Urine <2.0 mg/dL (<2.0)
[2020-10-04 12:21] LABS: Amphetamine Screen,Urine Not Detected (NotDetected); Barbiturate Screen,Urine Not Detected (NotDetected); Benzodiazepines Screen,Urine Not Detected (NotDetected); Cocaine Screen,Urine Not Detected (NotDetected); Methadone Screen, Urine Not Detected (NotDetected); Opiate Screen,Urine Not Detected (NotDetected); Oxycodone Screen, Urine Not Detected (NotDetected); Phencyclidine Screen,Urine Not Detected (NotDetected); Tricyclic Antidepressant,Urine Not Detected (NotDetected); Urn Cannabinoid Scrn Not Detected (NotDetected)
[2020-10-04] MEDS: SODIUM CHLORIDE 0.9% 1,000 ML IV SCH (14:40)
[2020-10-04] MEDS ORDERED: MELATONIN 3 MG TABLET PO PRN (14:52)
[2020-10-04] MEDS ORDERED: NALOXONE 0.4 MG/ML 1 ML VIAL IV PRN (14:52)
[2020-10-04] MEDS ORDERED: ACETAMINOPHEN TAB 325 MG TAB PO PRN (14:52)
[2020-10-04] MEDS ORDERED: ONDANSETRON 4 MG/2 ML VIAL IVP PRN (14:52)
--- NOTE | 2020-10-04 15:27 | P.HPIM ---
<Jules Swanson - Last Filed: 10/04/20 17:01> History of Present Illness H&P Date: 10/04/20 Chief Complaint: Increased Confusion History of presenting illness: Patient is an 89-year-old male with a past medical history of advanced dementia with paranoid behaviors, atrial fibrillation on Eliquis, previous TIAs, recurrent aspiration pneumonia, BPH, and hypertension not on medication. He had recent hospitalization on 09/12/20 through 09/14/20 for dehydration with aspiration pneumonia discharged home on antibiotics which were completed. Patient currently presented to [facility] with a chief complaint of increased confusion. Patient's daughter at bedside reports that her father's home care nurse stated that her father seemed to have some increased confusion this morning and wanted to use the restroom so she assisted him with walking to the restroom, she reports she returned to the restroom and found him to be on the toilet in a dazed and not responsive state. Patient's daughter, Birgit, reports that her father was awake but was not able to talk or communicate and just appeared to be "dazing and staring off somewhere." She states that he has had a decreased oral intake and has been having increased episodes of confusion over the past month such as not knowing how to button his shirt or how to put on a shirt, forgetting people's names, and often exhibiting paranoid behaviors; however she states he has never been to the point where he was just staring off and unable to communicate at all and this concerned them so they called EMS for transport to the hospital to be evaluated. Patient currently more alert than at baseline per his daughter at bedside. Patient alert to person and place, confused to time and situation. He does report feeling generalized weakness and having a headache but denies having any changes in his vision or hearing, tinnitus, chest pain or palpitations, shortness of breath, abdominal pain, or experiencing any numbness or tingling in extremities. Patient currently resides at home with his and has detention care daily, he ambulates with a walker. ED course: Patient was seen and fully evaluated in the emergency department resulting in admission to general medical observation unit where he will receive continuous close medical management. EKG: Atrial fibrillation with a controlled ventricular rate at 91 bpm. Chest x-ray: Negative for acute cardiopulmonary process revealing improvement from previously diagnosed aspiration pneumonia and right upper lobe. CT Head: No acute intracranial process. CTA head and neck: Revealing no significant abnormality with moderate plaque proximal left ICA estimated diameter reduction of greater than 80%. Labs: Troponin normal findings is 0.015. CBC unremarkable. BMP revealing mild hyponatremia with sodium of 135. Urinalysis negative for blood or infection. Urine drug screen negative. Assessment: Review of systems: Pertinent positives and negatives as discussed in HPI, a complete review of systems was performed and all other systems are negative. May be limited due to dementia. Physical exam: General: non toxic, no distress, appears at stated age Derm: warm, dry Head: atraumatic, normocephalic, symmetric Eyes: Pupils equal, no lid lag, anicteric sclera Mouth: no lip lesion, mucus membranes moist Cardiovascular: S1S2 reg, no murmur, positive posterior tibial pulses bilaterally, cap refill less than 2 Lungs: Respirations even, regular, and unlabored on 2 L O2 via nasal cannula SpO2 100%. Patient does have coarse raspy cough, patient and daughter report chronic and unchanged. Patient does have noted diffuse rhonchi in bilateral upper lobes, no wheezes present. No accessory muscle usage. Abdominal: soft, nontender to palpation, no guarding, no appreciable organomegaly Ext: no gross muscle atrophy, no edema, no contractures Neuro: Speech clear. Patient following limited commands. Alert to person and place confused to time and situation and per daughter at bedside this is patient's baseline mentation. Psych: Alert to person and place, confused to time and situation and per daughter at bedside this is patient's baseline mentation and states he does have episodes of paranoid behaviors-which are currently absent. Plan of care: Acute confusional episode on top of advanced dementia with paranoid behaviors. -Consult Neurology -Neuro checks q 4 hours and as needed -Orthostatic vitals -Gentle hydration -Telemetry monitoring -Fall Precautions -Continuation of Namenda and sertraline Persistent atrial fibrillation -Digoxin level therapeutic at 1.2. -Continue digoxin for rate control and anticoagulation with Eliquis. BPH -Continue Flomax Hx of recurrent aspiration and TIAs -Aspiration precautions -Fall precautions The patient is placed in observation with an anticipated less than 2 midnight stay for evaluation of acute confusional episode Surrogate decision-maker: Fatou Lacy () [phone], if unavailable daughter Birgit Back CODE STATUS: DNR/DNI DVT prophylaxis: Eliquis Discussed with: Pt and daughter Anticipated discharge date: 09-[address]: Home with continued homecare. A total of 55 minutes was spent on the care of this complex patient more than 50% of the time was spent in counseling and care coordination. Past Medical History Past Medical History: Atrial Fibrillation, Coronary Artery Disease (CAD), Heart Failure, CVA/TIA, Dementia, GERD/Reflux, Hyperlipidemia, Hypertension, Memory Impairment, Prostate Disorder Additional Past Medical History / Comment(s): GERD(PER PAST MEDICAL CHART), "DIFFIUCLTY SWALLOWING LATELY" APPETITE DECREASED, UNSTEADY ON HIS FEET up until 2 days ago was walking with walker and assit in february 2016 epididymoorchitis/uti/sepsis, constipation History of Any Multi-Drug Resistant Organisms: MRSA Date of last positivie culture/infection: 04/06/16 MDRO Source:: urine Past Surgical History: Appendectomy, Heart Catheterization With Stent, Hernia Repair Additional Past Surgical History / Comment(s): JEVON CATARACT SX STATED PT'S VISION RT EYE IS BLURRY WAS TO HAVE LASER EYE SX BUT CANCELLED D/T THIS ADMIT.PILONIDAL CYST REMOVED, COLONOSCOPY.sinus sx Past Anesthesia/Blood Transfusion Reactions: No Reported Reaction Date of Last Stent Placement:: 08/21/12 Past Psychological History: Anxiety, Depression Past Alcohol Use History: None Reported Past Drug Use History: None Reported - Past Family History Father Family Medical History: Cancer, Prostate Disorder Additional Family Medical History / Comment(s): PROSTATE CANCER Mother Family Medical History: Dementia Medications and Allergies Home Medications Medication Instructions Recorded Confirmed Type Digoxin [Lanoxin] 125 mcg PO DAILY 05/16/16 10/04/20 History Sertraline [Zoloft] 25 mg PO DAILY 05/16/16 10/04/20 History Tamsulosin [Flomax] 0.4 mg PO DAILY 08/02/16 10/04/20 History Memantine [Namenda] 5 mg PO DAILY 08/06/16 10/04/20 History Apixaban [Eliquis] 2.5 mg PO BID 09/12/20 10/04/20 History Allergies Allergy/AdvReac Type Severity Reaction Status Date / Time risperidone [From Risperdal] Allergy Unknown Verified 10/04/20 10:45 Physical Exam Vitals: Vital Signs Temp Pulse Resp BP Pulse Ox 10/04/20 14:20 62 16 142/92 100 10/04/20 13:46 97.5 F L 73 16 142/92 99 10/04/20 12:00 68 16 120/91 97 10/04/20 11:00 16 133/90 99 10/04/20 10:22 105/83 100 10/04/20 10:11 97.3 F L 82 16 105/83 96 Intake and Output 10/03/20 10/04/20 10/04/20 22:59 06:59 14:59 Other: Weight 72.575 kg Results CBC & Chem 7: 10/04/20 10:21 10/04/20 10:21 Labs: Abnormal Lab Results - Last 24 Hours (Table) 10/04/20 10/04/20 Range/Units 10:21 10:21 PT 12.6 H (9.0-12.0) sec INR 1.2 H (<1.2) Sodium 135 L (137-145) mmol/L Glucose 145 H (74-99) mg/dL Creatine Kinase 44 L (55-170) U/L <Carol Miller - Last Filed: 10/04/20 17:34> History of Present Illness Patient seen and examined independently. Patient was also seen by Jules Swanson NP and case was discussed. I am in agreement with subjective, physical exam, assessment and plan as written above and amended below. Patient seen and examined at bedside with daughter present. He continues to complain of a headache and some shoulder pain. Please see ACP note for further details. General: non toxic, no distress, appears at stated age Derm: warm, dry Head: atraumatic, normocephalic, symmetric Eyes: EOMI, no lid lag, anicteric sclera Mouth: no lip lesion, mucus membranes dry Cardiovascular: S1S2 reg, no murmur, positive posterior tibial pulse bilateral, Lungs: Decreased bs bilateral, no rhonchi, no rales , no accessory muscle use Abdominal: soft, nontender to palpation, no guarding, no appreciable or ganomegaly Ext: no gross muscle atrophy, no edema, no contractures Neuro: Intact finger to nose Psych: Alert, oriented to self and place, appropriate affect Physical Exam Osteopathic Statement: *. No significant issues noted on an osteopathic structural exam other than those noted in the History and Physical/Consult. Vitals: Vital Signs Temp Pulse Resp BP Pulse Ox 10/04/20 16:46 97.7 F 71 14 126/82 91 L 10/04/20 14:20 62 16 142/92 100 10/04/20 13:46 97.5 F L 73 16 142/92 99 10/04/20 12:00 68 16 120/91 97 10/04/20 11:00 16 133/90 99 10/04/20 10:22 105/83 100 10/04/20 10:11 97.3 F L 82 16 105/83 96 Intake and Output 10/04/20 10/04/20 10/04/20 06:59 14:59 22:59 Other: # Voids 0 Weight 72.575 kg 72.575 kg Results CBC & Chem 7: 10/04/20 10:21 10/04/20 10:21 Labs: Abnormal Lab Results - Last 24 Hours (Table) 10/04/20 10/04/20 Range/Units 10:21 10:21 PT 12.6 H (9.0-12.0) sec INR 1.2 H (<1.2) Sodium 135 L (137-145) mmol/L Glucose 145 H (74-99) mg/dL Creatine Kinase 44 L (55-170) U/L
--- NOTE | 2020-10-04 16:34 | P.PN ---
Progress Note - Text Progress Note Date: 10/04/20 Advanced Care Planning: Diagnoses: Advanced Dementia Discussion: Person(s) present and participating in discussion: Patient and daughter Summary: Per daughter patient has had a slow decline in his health. Initially when he left the hospital earlier this month he was doing better but he has again declined. They currently on a caregiver coming out Sunday through Sunday, initially after he left the hospital they have a caregiver there 24 7. They have been considering hospice at home. If he has any significant decline or we are unable to determine why he had this episode they would consider hospice enrollment. I discussed that we may not know his overall trajectory over the next 1-2 days during his hospital stay. I did encourage them to consider hospice should he continue to decline at home. We discussed the different hospices available in the area including [facility], [facility], and [facility]. She will talk this over with her family and see which hospice they would be most comfortable with. She does want home health care with an RN on discharge. He'll continue to consider hospice, she is very realistic about his overall quality of life and prognosis. She knows that they will likely return to hospice care soon. A total of 16 minutes of face to face time was spent discussing advanced care planning.
--- NOTE | 2020-10-04 17:51 | P.CNNES ---
History of Present Illness Consult date: 10/04/20 Requesting physician: Lalit Montiel Reason for Consult: TIA History of Present Illness: Patient is a 89-year-old left-handed male with history of possible CVA, COPD, atrial fibrillation who was just recently placed on Eliquis within the last couple days, also fell a couple days ago for which he did not seek any medical attention, was found sitting in the toilet at home today unresponsive. He came to the hospital this morning at 10:09 AM by ambulance. His blood glucose was 165. After he arrived, became more alert but still confused. No focal deficits noted. Patient not able to provide any history, and EMS flow sheet not available in the chart. Vital signs on arrival blood pressure 105/83, pulse rate 82, temperature 97.3. Blood test shows normal CBC, PT/PTT, sodium 135 potassium 4.5, normal renal functions, normal hepatic panel. CPK, troponin normal. UA and urine drug screen negative. Chest x-ray showed heart upper limits of normal range. No acute process. Previous right upper lobe infiltrate shows improvement. CT head showed age-related atrophic and chronic small vessel ischemic change without acute intracranial process seen at this time. CTA of the neck showed moderate plaque proximal left ICA estimated diameter reduction of greater than 80%. CTA of head normal. EKG shows atrial fibrillation, left anterior fascicular block. Patient takes Apixaban 2.5 mg twice a day, Namenda 5 mg daily, digoxin and Zoloft 25 mg daily. I spoke to patient's daughter Inocencia, who informed me that patient has seen 2 different neurologists, one of them diagnosed with dementia, and another one stated that he has just paranoia. She told me that last night he got very weak in the bathroom, dizzy, almost fell over. They put him in the bed. This morning surface grinder came and took him to the bathroom and while he was sitting, his head dropped forward. He couldn't speak, couldn't talk his eyes were glazed and was semi-unconscious. He could not say name of his daughter who he knows very well. EMS was called. It took almost 1 hour for him to get better. Patient's daughter also mentioned that patient has episodes of confusion in the past 1 week. Patient has been on warfarin, but in August 2028 was switched to Eliquis. Patient never had any history of strokes or TIA or seizures. Review of Systems Patient denies any chest pain shortness of breath. Denies any double vision. Patient did not answer to other questions because of his mental status. ROS unobtainable: due to mental status Past Medical History Past Medical History: Atrial Fibrillation, Coronary Artery Disease (CAD), Heart Failure, CVA/TIA, Dementia, GERD/Reflux, Hyperlipidemia, Hypertension, Memory Impairment, Prostate Disorder Additional Past Medical History / Comment(s): GERD(PER PAST MEDICAL CHART), "DIFFIUCLTY SWALLOWING LATELY" APPETITE DECREASED, UNSTEADY ON HIS FEET up until 2 days ago was walking with walker and assit in february 2016 epididymoorchitis/uti/sepsis, constipation History of Any Multi-Drug Resistant Organisms: MRSA Date of last positivie culture/infection: 04/06/16 MDRO Source:: urine Past Surgical History: Appendectomy, Heart Catheterization With Stent, Hernia Repair Additional Past Surgical History / Comment(s): JEVON CATARACT SX STATED PT'S VISION RT EYE IS BLURRY WAS TO HAVE LASER EYE SX BUT CANCELLED D/T THIS ADMIT.PILONIDAL CYST REMOVED, COLONOSCOPY.sinus sx Past Anesthesia/Blood Transfusion Reactions: No Reported Reaction Date of Last Stent Placement:: 08/21/12 Past Psychological History: Anxiety, Depression Past Alcohol Use History: None Reported Past Drug Use History: None Reported - Past Family History Father Family Medical History: Cancer, Prostate Disorder Additional Family Medical History / Comment(s): PROSTATE CANCER Mother Family Medical History: Dementia Medications and Allergies Home Medications Medication Instructions Recorded Confirmed Type Digoxin [Lanoxin] 125 mcg PO DAILY 05/16/16 10/04/20 History Sertraline [Zoloft] 25 mg PO DAILY 05/16/16 10/04/20 History Tamsulosin [Flomax] 0.4 mg PO DAILY 08/02/16 10/04/20 History Memantine [Namenda] 5 mg PO DAILY 08/06/16 10/04/20 History Apixaban [Eliquis] 2.5 mg PO BID 09/12/20 10/04/20 History Allergies Allergy/AdvReac Type Severity Reaction Status Date / Time risperidone [From Risperdal] Allergy Unknown Verified 10/04/20 10:45 Physical Examination - Vital Signs Vital Signs: Vital Signs Temp Pulse Resp BP Pulse Ox 10/04/20 14:20 62 16 142/92 100 10/04/20 13:46 97.5 F L 73 16 142/92 99 10/04/20 12:00 68 16 120/91 97 10/04/20 11:00 16 133/90 99 10/04/20 10:22 105/83 100 10/04/20 10:11 97.3 F L 82 16 105/83 96 Intake and Output 10/04/20 10/04/20 10/04/20 06:59 14:59 22:59 Other: Weight 72.575 kg 72.575 kg On examination patient is an elderly male, in no acute distress. He is alert and awake. He knows that it is winter season. He knows that he is in [facility] in a hospital but does not know the name of the hospital. He knows name of the current president Mr. Lima. Patient's speech and language functions are normal. Detail testing deferred. Patient can name and repeat. Patient did not allow me to examine. On repeated request, patient became agitated, started yelling "get out of here". Patient has been somewhat aggres sive tumors the nurses as well. On my observation, his face is symmetric. His pupils are round and reacting. Visual barron could not be tested. Patient did not protrude his tongue. Patient moves his arms and legs equally. No obvious focal weakness noted on his routine movements. Rest of the examination couldn't be tested because of noncooperation. No obvious edema. No rash. Heart sounds, chest or abdomen could not be tested. Results - Laboratory Findings CBC and BMP: 10/04/20 10:21 10/04/20 10:21 Abnormal Lab Findings: Abnormal Labs 10/04/20 10/04/20 10:21 10:21 PT 12.6 H INR 1.2 H Sodium 135 L Glucose 145 H Creatine Kinase 44 L Assessment and Plan Assessment: * Recurrent 2 episodes of syncope versus TIA. Rule out arrhythmia. Seizure (partial) also in the differential although less likely. 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 * Dementia * Paranoia Plan: * I informed patient's daughter about left ICA stenosis of severe degree >80%. We discussed about vascular surgical evaluation, but with patient's paranoia, and advanced age, she was not interested. At this point, we will just start aspirin 81 mg daily for stroke prevention related to atherosclerotic cerebro vascular disease. * Patient will be continued on Eliquis 2.5 mg twice a day for atrial fibrillation. * Pepcid 20 mg twice a day for gastric ulcer prophylaxis. * We discussed about EEG, but will hold off on it for now due to patient's agitation, probably will not tolerate. * Observe overnight. Telemetry monitoring to rule out arrhythmia. * Fasting a.m. lipid panel, hemoglobin A1c, B12, folate, TSH. * We will follow.
[2020-10-04] MEDS: ASPIRIN 81 MG PO SCH (18:00)
[2020-10-04] MEDS: FAMOTIDINE 20 MG TAB PO SCH (19:30)
[2020-10-04] MEDS: APIXABAN 2.5 MG TABLET PO SCH (19:30)
[2020-10-05] MEDS: SODIUM CHLORIDE 0.9% 1,000 ML IV SCH ×3 (01:46→20:03)
[2020-10-05 05:20] LABS: Basophils # (A) 0.1 k/uL (0-0.2); Basophils % (A) 1 %; Eosinophils # (A) 0.1 k/uL (0-0.7); Eosinophils % (A) 1 %; Lymphocytes # (A) 1.9 k/uL (1.0-4.8); Lymphocytes % (A) 24 %; MCH 32.1 pg (25.0-35.0); MCHC 33.4 g/dL (31.0-37.0); MCV 95.9 fL (80.0-100.0); Mean Platelet Volume 7.4; Monocytes # (A) 0.6 k/uL (0-1.0); Monocytes % (A) 7 %; Neutrophils # (A) 5.2 k/uL (1.3-7.7); Neutrophils % (A) 65 %; Platelet Count 176 k/uL (150-450); RBC 4.06 m/uL (4.30-5.90); RDW 13.3 % (11.5-15.5)
[2020-10-05 09:52] LABS: Anion Gap 7.5 mmol/L (4.00-12.00); Calcium 8.6 mg/dL (8.7-10.3); Carbon Dioxide 25.5 mmol/L (21.6-31.8); Chol/HDL Ratio 3.94; LDL Cholesterol,Calculated 81.4 mg/dL (0.0-131.0); Magnesium 1.6 mg/dL (1.5-2.4); Non-African American GFR(CKD) 66.4 (60.0-200.0); Potassium 4.2 mmol/L (3.5-5.5); VLDL Calculation 18.6 mg/dL (5.00-40.00)
[2020-10-05 10:06] LABS: Folate, Serum 14.7 ng/mL
[2020-10-05] MEDS: FAMOTIDINE 20 MG TAB PO SCH ×2 (14:11→21:32)
[2020-10-05] MEDS: TAMSULOSIN 0.4 MG CAP.ER.24H PO SCH (14:11)
[2020-10-05] MEDS: ASPIRIN 81 MG PO SCH (14:11)
[2020-10-05] MEDS: APIXABAN 2.5 MG TABLET PO SCH (14:12)
[2020-10-05] MEDS: SERTRALINE 25 MG TAB PO SCH (14:12)
--- NOTE | 2020-10-05 14:36 | P.PN ---
Subjective Progress Note Date: 10/05/20 History of presenting illness: Patient is an 89-year-old male with a past medical history of advanced dementia with paranoid behaviors, atrial fibrillation on Eliquis, previous TIAs, recurrent aspiration pneumonia, BPH, and hypertension not on medication. He had recent hospitalization on 09/12/20 through 09/14/20 for dehydration with aspiration pneumonia discharged home on antibiotics which were completed. Patient currently presented to [facility] with a chief complaint of increased confusion. Patient's daughter at bedside reports that her father's home care nurse stated that her father seemed to have some increased confusion this morning and wanted to use the restroom so she assisted him with walking to the restroom, she reports she returned to the restroom and found him to be on the toilet in a dazed and not responsive state. Patient's daughter, Birgit, reports that her father was awake but was not able to talk or communicate and just appeared to be "dazing and staring off somewhere." She states that he has had a decreased oral intake and has been having increased episodes of confusion over the past month such as not knowing how to button his shirt or how to put on a shirt, forgetting people's names, and often exhibiting paranoid behaviors; however she states he has never been to the point where he was just staring off and unable to communicate at all and this concerned them so they called EMS for transport to the hospital to be evaluated. Patient currently more alert than at baseline per his daughter at bedside. Patient currently resides at home with his and has [facility] care daily, he ambulates with a walker. EKG: Atrial fibrillation with a controlled ventricular rate at 91 bpm. Chest x-ray: Negative for acute cardiopulmonary process revealing improvement from previously diagnosed aspiration pneumonia and right upper lobe. CT Head: No acute intracranial process. CTA head and neck: Revealing no significant abnormality with moderate plaque proximal left ICA estimated diameter reduction of greater than 80%. Labs: Troponin normal findings is 0.015. CBC and BMP unremarkable. Urinalysis negative for blood or infection. Urine drug screen negative. Digoxin therapeutic at 1.2. 10/05/20 Had a long discussion with patient's , Fatou, and his daughter, Birgit regarding patient's condition. It was discussed patient's overall deterioration over the past 2 years and progressively worsened confusion, decreased oral intake, and paranoid behaviors over the last month. and daughter informed that this is likely secondary to advancing dementia and condition will likely continue to deteriorate. Recommended subacute rehab placement secondary to patient's limited cognition, high risk for falls, and need for 24-hour supervision. Discussed potential of hospice and palliative care, and daughter opposed to this at this time. Pt's has poor understanding of deteriorating condition and was very adamant that Eliquis is the cause of confusion and worsening dementia and demanded to have medication discontinued and place patient back on Coumadin. Daughter was more understanding that Eliquis is not the cause of increased confusion, but also requesting to have medication changed back to Coumadin as her mother requested and is arranging to have a private caregiver in home for 24 hour care. Daughter states that once her father is back on Coumadin and her mother has time to r ealize that Eliquis is not the reason for the worsening episodes of confusion and deteriorating state, they will make arrangements to discuss hospice and palliative care at that time. Assessment: Patient seen and fully examined at the bedside. Patient remains confused. This morning he was alert to person and confused to place and situation. Patient initially stated he was in [facility] and then stated he was at home. Speech was clear and face was symmetrical. Patient denied having any complaints including headache, numbness or tingling sensations, chest pain, shortness of breath, or abdominal pain. Physical exam: General: non toxic, no distress, appears at stated age Derm: warm, dry Head: atraumatic, normocephalic, symmetric Eyes: Pupils equal, no lid lag, anicteric sclera Mouth: no lip lesion, mucus membranes moist Cardiovascular: S1S2 reg, no murmur, positive posterior tibial pulses bilaterally, cap refill less than 2 Lungs: Respirations even, regular, and unlabored on 2 L O2 via nasal cannula SpO2 100%. Patient does have noted diffuse rhonchi in bilateral upper lobes clearing with cough, no wheezes present. No accessory muscle usage. Abdominal: soft, nontender to palpation, no guarding, no appreciable organomegaly Ext: no gross muscle atrophy, no edema, no contractures Neuro: Speech clear. Patient following limited commands. Alert to person and confused to place, time and situation and per daughter at bedside this is patient's baseline mentation. Psych: Alert to person and place, confused to time and situation and per daug hter at bedside this is patient's baseline mentation and states he does have episodes of paranoid behaviors-which are currently absent. Plan of care: Acute confusional episode on top of advanced dementia with paranoid behaviors, likely resulting from worsening dementia -CT head was negative showing no acute intracranial process. -CTA head and neck negative for acute process revealing moderate plaque proximal left ICA estimated diameter reduction of greater than 80%. -Neurology following, appreciate recommendations -Neuro checks q 4 hours and as needed -PT and OT evaluated patient this morning and recommending subacute rehabilitation with 02/04 care. Discussed with family, family opposed to subacute rehabilitation in making arrangements to have a private caregiver in- house 02/04. -Orthostatic vitals, would like to obtain orthostatic vitals patient was not cooperative with RN and previous attempts. We will reattempt at later time. -Telemetry monitoring -Fall Precautions -Continuation of Namenda and sertraline Persistent atrial fibrillation -Digoxin level therapeutic at 1.2. -Continue digoxin for rate control. -Eliquis discontinued per family request and patient placed back on Coumadin per 's preference. BPH -Continue Flomax Hx of recurrent aspiration and TIAs -Aspiration precautions -Fall precautions Surrogate decision-maker: Fatou Lacy () [phone], if unavailable daughter Birgit Back CODE STATUS: DNR/DNI DVT prophylaxis: Eliquis Discussed with: and daughter Anticipated discharge date: [address]: Home with [id number]. A total of 45 minutes was spent on the care of this complex patient more than 50% of the time was spent in counseling and care coordination. Objective - Vital Signs Vital signs: Vital Signs Temp 97.6 F 10/05/20 08:00 Pulse 88 10/05/20 08:00 Resp 16 10/05/20 08:00 BP 159/79 10/05/20 08:00 Pulse Ox 97 10/05/20 08:00 Intake & Output 10/04/20 10/05/20 10/05/20 18:59 06:59 18:59 Intake Total 1200 Balance 1200 Weight 72.575 kg Intake: Intake, IV Titration 1200 Amount Sodium Chloride 0.9% 1, 1200 000 ml @ 100 mls/hr IV . Q10H [facility] Rx#:[id number] Other: # Voids 0 - Labs CBC & Chem 7: 10/05/20 04:47 10/05/20 04:47 Labs: Abnormal Lab Results - Last 24 Hours (Table) 10/05/20 10/05/20 Range/Units 04:47 04:47 RBC 4.06 L (4.30-5.90) m/uL Calcium 8.6 L (8.7-10.3) mg/dL HDL Cholesterol 34.0 L (40.0-60.0) mg/dL
[2020-10-05] MEDS: MEMANTINE 5 MG TAB PO SCH (15:06)
[2020-10-05] MEDS: DIGOXIN 125 MCG TAB PO SCH (15:06)
[2020-10-05 15:22] LABS: INR 1.2 (<1.2); Prothrombin Time 12.1 sec (9.0-12.0)
--- NOTE | 2020-10-05 16:34 | P.PN ---
Subjective Progress Note Date: 10/05/20 Patient was seen for a follow-up. Patient is laying comfortably in the bed. Patient was having IV line placed by the nurse. Patient was much more cooperative, and did let me examine him. Denies any headache or any focal symptoms. Objective - Vital Signs Vital signs: Vital Signs Temp 98.0 F 10/05/20 14:00 Pulse 75 10/05/20 14:00 Resp 16 10/05/20 14:00 BP 125/71 10/05/20 14:00 Pulse Ox 95 10/05/20 14:00 Intake & Output 10/04/20 10/05/20 10/05/20 18:59 06:59 18:59 Intake Total 1200 100 Balance 1200 100 Weight 72.575 kg Intake: Intake, IV Titration 1200 Amount Sodium Chloride 0.9% 1, 1200 000 ml @ 100 mls/hr IV . Q10H [facility] Rx#:[id number] Oral 100 Other: # Voids 0 1 - Exam Patient is slightly somnolent. Patient knows his name, but elected not to answer any other questions. I did not press too much otherwise patient gets agitated. Patient's face is symmetric, pupils are round and reacting. Visual barron he did not cooperate. Patient's muscle strength is normal in the arms and legs. Reflexes symmetric. Plantars are withdrawal. Sensations appears equal. - Labs CBC & Chem 7: 10/05/20 04:47 10/05/20 04:47 Labs: Abnormal Lab Results - Last 24 Hours (Table) 10/05/20 10/05/20 10/05/20 Range/Units 04:47 04:47 14:35 RBC 4.06 L (4.30-5.90) m/uL PT 12.1 H (9.0-12.0) sec INR 1.2 H (<1.2) Calcium 8.6 L (8.7-10.3) mg/dL HDL Cholesterol 34.0 L (40.0-60.0) mg/dL Assessment and Plan Assessment: * Recurrent 2 episodes of syncope, possible TIA. Rule out arrhythmia. Seizure (partial) also in the differential although less likely. 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 * Dementia * Paranoia Plan: * Patient is doing better. No further spells. Examination is nonfocal. Patient now back to warfarin for atrial fibrillation. Also an aspirin 81 mg daily for stroke prevention related to left ICA stenosis. * Pepcid 20 mg twice a day for gastric ulcer prophylaxis. * Fasting a.m. lipid panel with cholesterol 134, LDL 81, HDL 34 and triglycerides 93. * Hemoglobin A1c pending, B12 479, folate 14.7, TSH 2.11, all normal. * Neurologically clear for discharge.
[2020-10-05] MEDS: WARFARIN 2.5 MG TAB PO SCH (19:57)
[2020-10-05 20:28] LABS: Hemoglobin A1C 6.3 % (4.0-6.0)
[2020-10-05] MEDS ORDERED: MAGNESIUM SULFATE-D5W PMX 1 GM in DEXTROSE/WATER 1 100ML.BAG IVPB ONE (20:32)
--- NOTE | 2020-10-05 23:50 | P.EN ---
patient was moved to the cardiac unit due to recurrent sinus pauses of 2.5 seconds , he does not report any symptoms. he seemed to have some mental status changes to the night RN . however upon my evaluation , it just seems he gets agitated easily when disturbed, I spent some time at bedside, explaining and encouraging him to cooperate. and he was calm and understanding he is able to move all his extremities purposefully , both pupils are pin point but he is making good eye contact, denies any headache, he follows commands, and denies any visual changes. patient was also refusing to take his meds, he said he would consider taking them once he is calmed down . patient to move to cardiac unit cardiology consult check EKG replace magnesium patient with history of afib
[2020-10-06] MEDS: SODIUM CHLORIDE 0.9% 1,000 ML IV SCH ×2 (05:52→11:22)
[2020-10-06 11:21] LABS: INR 1.18 (0.90-1.11); Prothrombin Time 12.6 sec (9.9-11.9)
[2020-10-06] MEDS: FAMOTIDINE 20 MG TAB PO SCH (12:03)
--- NOTE | 2020-10-06 12:32 | P.CRDCN ---
History of Present Illness History of present illness: HISTORY OF PRESENTING ILLNESS This is a pleasant 89-year-old male past medical history significant for chronic persistent atrial fibrillation, coronary artery disease status post PCI to the proximal PLB branch and mid LAD in 2001, ischemic cardiomyopathy with ejection fraction 35%, dementia and dyslipidemia. He follows in the office with Dr Ramos. We have been asked to see in consultation for bradycardia. The patient was brought to the hospital after he was found unresponsive on the toilet. He has been diagnosed with possible TIA by neurology. Telemetry tracings indicate he is in persistent atrial fibrillation with some pauses, less than 3.2 seconds in duration. According tot he nursing staff and medical record he is asymptomatic during these times. He is not conversing appropriately and acting out aggressively. Information is obtained from the medical record and nursing staff. DIAGNOSTICS EKG reveals atrial fibrillation heart rate of 91 with left anterior fascicular block and poor R-wave progression. Telemetry tracings indicate in atrial fibrillation with intermittent pauses, longest being 3.2 seconds. Chest xray negative for an acute cardiopulmonary process. Brain CT reveals age-related atrophic and chronic small vessel ischemic changes without an acute intracranial process. CT angiography reveals moderate plaque of the proximal left ICA with diameter r eduction of greater than 80%. Laboratory reviewed, CBC unremarkable, INR 1.1, sodium 138, potassium 4.2, creatinine 1.0, magnesium 1.6, troponin negative 1, TSH 2.11. Current cardiac medications include Eliquis 2.5 mg twice a day and digoxin 125 g daily. REVIEW OF SYSTEMS At the time of my exam: Unable to obtain accurate review of systems secondary to mental status. PHYSICAL EXAMINATION Blood pressure 129/80 heart rate 78 afebrile and maintaining oxygen saturation on room air. CONSTITUTIONAL: No apparent distress. HEENT: Head is normocephalic. Pupils are equal, round. Sclerae anicteric. Mucous membranes of the mouth are moist. No JVD. No carotid bruit. CHEST EXAMINATION: Lungs are clear to auscultation. No chest wall tenderness is noted on palpation or with deep breathing. HEART EXAMINATION: Irregular rate and rhythm. S1, S2 heard. No murmurs, gallops or rub. ABDOMEN: Soft, nontender. Positive bowel sounds. EXTREMITIES: 2+ peripheral pulses, no lower extremity edema and no calf tenderness. ASSESSMENT Persistent atrial fibrillation with sick sinus syndrome Altered mental status Syncope Advanced dementia PLAN Discontinue digoxin. Continue telemetry monitoring for another 24 hours. Apparently the would prefer Coumadin over Eliquis, this was changed per the primary care team. The patient is refusing Coumadin at this time. Overall he is not a good candidate for permanent pacemaker implantation given his advanced dementia and unwillingness to participate in his medical care. We will attempt to obtain an echocardiogram to assess cardiac structure and function. Further recommendations to follow based upon clinical course. Thank you kindly for this consultation. Nurse Practitioner note has been reviewed, I agree with a documented findings and plan of care. Patient was seen and examined. Past Medical History Past Medical History: Atrial Fibrillation, Coronary Artery Disease (CAD), Heart Failure, CVA/TIA, Dementia, GERD/Reflux, Hyperlipidemia, Hypertension, Memory Impairment, Prostate Disorder Additional Past Medical History / Comment(s): GERD(PER PAST MEDICAL CHART), "DIFFIUCLTY SWALLOWING LATELY" APPETITE DECREASED, UNSTEADY ON HIS FEET up until 2 days ago was walking with walker and assit in february 2016 epididymoorchitis/uti/sepsis, constipation History of Any Multi-Drug Resistant Organisms: MRSA Date of last positivie culture/infection: 04/06/16 MDRO Source:: urine Past Surgical History: Appendectomy, Heart Catheterization With Stent, Hernia Repair Additional Past Surgical History / Comment(s): JEVON CATARACT SX STATED PT'S VISION RT EYE IS BLURRY WAS TO HAVE LASER EYE SX BUT CANCELLED D/T THIS ADMIT.PILONIDAL CYST REMOVED, COLONOSCOPY.sinus sx Past Anesthesia/Blood Transfusion Reactions: No Reported Reaction Date of Last Stent Placement:: 08/21/12 Past Psychological History: Anxiety, Depression Past Alcohol Use History: None Reported Past Drug Use History: None Reported - Past Family History Father Family Medical History: Cancer, Prostate Disorder Additional Family Medical History / Comment(s): PROSTATE CANCER Mother Family Medical History: Dementia Medications and Allergies Home Medications Medication Instructions Recorded Confirmed Type Digoxin [Lanoxin] 125 mcg PO DAILY 05/16/16 10/04/20 History Sertraline [Zoloft] 25 mg PO DAILY 05/16/16 10/04/20 History Tamsulosin [Flomax] 0.4 mg PO DAILY 08/02/16 10/04/20 History Memantine [Namenda] 5 mg PO DAILY 08/06/16 10/04/20 History Apixaban [Eliquis] 2.5 mg PO BID 09/12/20 10/04/20 History Allergies Allergy/AdvReac Type Severity Reaction Status Date / Time risperidone [From Risperdal] Allergy Unknown Verified 10/04/20 10:45 Physical Exam Vitals: Vital Signs Temp Pulse Resp BP Pulse Ox 10/06/20 11:24 78 15 129/80 98 10/06/20 08:00 77 15 163/70 99 10/06/20 02:00 48 L 18 10/05/20 21:35 70 18 10/05/20 21:33 97.0 F L 70 18 141/73 98 10/05/20 19:45 96.8 F L 67 151/78 98 10/05/20 14:00 98.0 F 75 16 125/71 95 Intake and Output 10/05/20 10/06/20 10/06/20 22:59 06:59 14:59 Intake Total 300 Balance 300 Intake: Intake, IV Titration 100 Amount Sodium Chloride 0.9% 1, 100 000 ml @ 100 mls/hr IV . Q10H [facility] Rx#:[id number] Oral 200 Other: Voiding Method Diaper Diaper Diaper Incontinent Incontinent Incontinent # Voids 1 Weight 58 kg Results 10/05/20 04:47 10/05/20 04:47 Coagulation 10/05/20 10/06/20 Range/Units 14:35 06:44 PT 12.1 H 12.6 H (9.0-12.0) sec Current Medications Generic Name Dose Route Start Last Admin Trade Name Freq PRN Reason Stop Dose Admin Acetaminophen 650 mg 10/04/20 14:52 Acetaminophen Tab 325 Mg Tab PO Q6HR PRN Mild Pain or Fever > 100.5 Aspirin 81 mg 10/04/20 18:00 10/05/20 14:11 Aspirin 81 Mg PO 81 mg DAILY [facility] Administration Famotidine 20 mg 10/04/20 21:00 10/05/20 21:32 Famotidine 20 Mg Tab PO Not Given BID [facility] Sodium Chloride 1,000 mls @ 100 mls/hr 10/04/20 13:45 10/06/20 11:22 Saline 0.9% IV 100 mls/hr .Q10H [facility] Administration Melatonin 3 mg 10/04/20 14:52 10/04/20 19:30 Melatonin 3 Mg Tablet PO 3 mg HS PRN Administration Insomnia Memantine 5 mg 10/05/20 09:00 10/05/20 15:06 Memantine 5 Mg Tab PO 5 mg DAILY [facility] Administration Metoprolol Tartrate 25 mg 10/07/20 09:00 Metoprolol Tartrate 25 Mg Tab PO DAILY [facility] Miscellaneous Information 0 each 10/05/20 15:25 Warfarin Per Pharmacy MISCELLANE DIRECTED PRN Per Protocol Naloxone HCl 0.2 mg 10/04/20 14:52 Naloxone 0.4 Mg/Ml 1 Ml Vial IV Q2M PRN Opioid Reversal Ondansetron HCl 4 mg 10/04/20 14:52 Ondansetron 4 Mg/2 Ml Vial IVP Q8HR PRN Nausea And Vomiting Sertraline HCl 25 mg 10/05/20 09:00 10/05/20 14:12 Sertraline 25 Mg Tab PO 25 mg DAILY [facility] Administration Tamsulosin HCl 0.4 mg 10/05/20 09:00 10/05/20 14:11 Tamsulosin 0.4 Mg Cap.Er.24h PO 0.4 mg DAILY [facility] Administration Warfarin Sodium 2.5 mg 10/05/20 18:00 10/05/20 19:57 Warfarin 2.5 Mg Tab PO Not Given DAILY@1800 [facility] Protocol Intake and Output 10/05/20 10/06/20 10/06/20 22:59 06:59 14:59 Intake Total 300 Balance 300 Intake: Intake, IV Titration 100 Amount Sodium Chloride 0.9% 1, 100 000 ml @ 100 mls/hr IV . Q10H [facility] Rx#:[id number] Oral 200 Other: Voiding Method Diaper Diaper Diaper Incontinent Incontinent Incontinent # Voids 1 Weight 58 kg 10/05/20 04:47 10/05/20 04:47
--- NOTE | 2020-10-06 13:25 | P.PN ---
Subjective Progress Note Date: 10/06/20 Patient was seen for a follow-up. Patient asleep at this time. Per nurse he was very agitated, swinging, tracking the nurses. Patient transferred to telemetry because of sinus pauses. Cardiology has seen the patient. No new focal symptoms or syncopal spells. Objective - Vital Signs Vital signs: Vital Signs Temp 97.0 F L 10/05/20 21:33 Pulse 78 10/06/20 11:24 Resp 15 10/06/20 11:24 BP 129/80 10/06/20 11:24 Pulse Ox 98 10/06/20 11:24 Intake & Output 10/05/20 10/06/20 10/06/20 18:59 06:59 18:59 Intake Total 200 100 Balance 200 100 Weight 58 kg Intake: Intake, IV Titration 100 Amount Sodium Chloride 0.9% 1, 100 000 ml @ 100 mls/hr IV . Q10H [facility] Rx#:[id number] Oral 200 Other: Voiding Method Diaper Diaper Incontinent Incontinent # Voids 1 - Exam Patient asleep at this time. Did not wake him up because gets agitated. - Labs CBC & Chem 7: 10/05/20 04:47 10/05/20 04:47 Labs: Abnormal Lab Results - Last 24 Hours (Table) 10/05/20 10/05/20 10/06/20 Range/Units 04:47 14:35 06:44 PT 12.1 H 12.6 H (9.0-12.0) sec INR 1.2 H 1.18 H (<1.2) Hemoglobin A1c 6.3 H (4.0-6.0) % Assessment and Plan Assessment: * Recurrent 2 episodes of syncope, probable arrhythmia. Telemetry showing sinus pauses, consistent with sick sinus syndrome. 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 * Dementia * Paranoia Plan: * Patient is now back on Coumadin and aspirin. Patient is not compliant with medication. * Patient does have severe left ICA stenosis, but is not a candidate for CEA. * Pepcid 20 mg twice a day for gastric ulcer prophylaxis. * Fasting a.m. lipid panel with cholesterol 134, LDL 81, HDL 34 and triglycerides 93. * Hemoglobin A1c 6.3, B12 479, folate 14.7, TSH 2.11, all normal. * Neurologically clear for discharge. * Neurology will sign off.
--- NOTE | 2020-10-06 13:56 | P.PN ---
Subjective Progress Note Date: 10/06/20 History of presenting illness: Patient is an 89-year-old male with a past medical history of advanced dementia with paranoid behaviors, atrial fibrillation on Eliquis, previous TIAs, recurrent aspiration pneumonia, BPH, and hypertension not on medication. He had recent hospitalization on 09/12/20 through 09/14/20 for dehydration with aspiration pneumonia discharged home on antibiotics which were completed. Patient currently presented to [facility] with a chief complaint of increased confusion. Patient's daughter at bedside reports that her father's home care nurse stated that her father seemed to have some increased confusion this morning and wanted to use the restroom so she assisted him with walking to the restroom, she reports she returned to the restroom and found him to be on the toilet in a dazed and not responsive state. Patient's daughter, Birgit, reports that her father was awake but was not able to talk or communicate and just appeared to be "dazing and staring off somewhere." She states that he has had a decreased oral intake and has been having increased episodes of confusion over the past month such as not knowing how to button his shirt or how to put on a shirt, forgetting people's names, and often exhibiting paranoid behaviors; however she states he has never been to the point where he was just staring off and unable to communicate at all and this concerned them so they called EMS for transport to the hospital to be evaluated. Patient currently more alert than at baseline per his daughter at bedside. Patient currently resides at home with his and has [facility] care daily, he ambulates with a walker. Physical exam: 10/06/20: Patient seen and fully examined at the bedside. Overnight, patient had recurrent episodes of asymptomatic cardiac pauses and was transferred to cardiac stepdown unit in order placed for cardiology consult. Patient remains confused. This morning pt was alert to person and confused to place, time and situation. Speech was clear and face was symmetrical. Patient appeared to be agitated with assessment but did deny having any complaints including headache, numbness or tingling sensations, chest pain, shortness of breath, or abdominal pain. General: non toxic, no distress, appears at stated age Derm: warm, dry Head: atraumatic, normocephalic, symmetric Eyes: Pupils equal, no lid lag, anicteric sclera Mouth: no lip lesion, mucus membranes moist Cardiovascular: S1S2 reg, no murmur, positive posterior tibial pulses bilaterally, cap refill less than 2 Lungs: Respirations even, regular, and unlabored on 2 L O2 via nasal cannula SpO2 100%. Lungs clear to auscultation upon assessment this morning with no noted rhonchi, rales, crackles or wheezes present. No accessory muscle usage. Abdominal: soft, nontender to palpation, no guarding, no appreciable organomegaly Ext: no gross muscle atrophy, no edema, no contractures Neuro: Speech clear. Patient following limited commands. Alert to person and confused to place, time and situation. Psych: Alert to person and confused to place, time, and situation. Plan of care: Acute confusional episode on top of advanced dementia with paranoid behaviors, likely resulting from worsening dementia vs TIA -CT head was negative showing no acute intracranial process. -CTA head and neck negative for acute process revealing moderate plaque proximal left ICA estimated diameter reduction of greater than 80%. -Neurology following, appreciate recommendations -Neuro checks q 4 hours and as needed -PT and OT evaluated patient this morning and recommending subacute rehabilitation with 24/ care. Discussed with family, family opposed to subacute rehabilitation and have made arrangements to have a private caregiver in-house 24/ upon discharge. -Orthostatic vitals, would like to obtain orthostatic vitals patient was not cooperative with RN and previous attempts. We will reattempt at later time. -Telemetry monitoring -Fall Precautions -Continuation of Namenda and sertraline -Urinalysis and UDS negative. Persistent atrial fibrillation with recurrent cardiac pauses -Digoxin level therapeutic at 1.2. -EKG: Atrial fibrillation with a controlled ventricular rate at 91 bpm with no noted acute ischemic changes. -Patient had recurrent episodes of cardiac pauses lasting up to 3.2 seconds in duration. -Body Bumper evaluated patient and recommending continued cardiac monitoring over the next 24 hours, discontinuation of digoxin, and another attempt at obtaining echocardiogram. -Eliquis was discontinued yesterday per family request and patient placed back on Coumadin per 's preference, patient refusing Coumadin at this time. BPH -Continue Flomax Hx of recurrent aspiration and TIAs -Aspiration precautions -Fall precautions Surrogate decision-maker: Fatou Desperfectoshen () [phone], if unavailable daughter Birgit Back CODE STATUS: DNR/DNI. Daughter states that once her father has been back on Coumadin and her mother has been given the time to realize that Eliquis is not the reason for the worsening episodes of confusion and deteriorating state, they will make arrangements to further discuss hospice and palliative care at that time, but currently opposed to this option. DVT prophylaxis: Coumadin Discussed with: Pt, RN, and Daughter Anticipated discharge date: 1-[address]: Home with [id number] homecare. A total of 45 minutes was spent on the care of this complex patient more than 5 0% of the time was spent in counseling and care coordination. Objective - Vital Signs Vital signs: Vital Signs Temp 97.0 F L 10/05/20 21:33 Pulse 78 10/06/20 11:24 Resp 15 10/06/20 11:24 BP 129/80 10/06/20 11:24 Pulse Ox 98 10/06/20 11:24 Intake & Output 10/05/20 10/06/20 10/06/20 18:59 06:59 18:59 Intake Total 200 100 Balance 200 100 Weight 58 kg Intake: Intake, IV Titration 100 Amount Sodium Chloride 0.9% 1, 100 000 ml @ 100 mls/hr IV . Q10H [facility] Rx#:[id number] Oral 200 Other: Voiding Method Diaper Diaper Incontinent Incontinent # Voids 1 - Labs CBC & Chem 7: 10/05/20 04:47 10/05/20 04:47 Labs: Abnormal Lab Results - Last 24 Hours (Table) 10/05/20 10/05/20 10/06/20 Range/Units 04:47 14:35 06:44 PT 12.1 H 12.6 H (9.0-12.0) sec INR 1.2 H 1.18 H (<1.2) Hemoglobin A1c 6.3 H (4.0-6.0) %
[2020-10-06] MEDS: ASPIRIN 81 MG PO SCH (15:08)
[2020-10-06] MEDS: MEMANTINE 5 MG TAB PO SCH (15:08)
[2020-10-06] MEDS: SERTRALINE 25 MG TAB PO SCH (15:08)
[2020-10-06] MEDS: TAMSULOSIN 0.4 MG CAP.ER.24H PO SCH (15:09)
[2020-10-06] MEDS: DIGOXIN 125 MCG TAB PO SCH (15:29)
[2020-10-06] MEDS: WARFARIN 2.5 MG TAB PO SCH (17:31)
[2020-10-06] MEDS ORDERED: METOPROLOL TARTRATE 25 MG TAB PO SCH (21:00)
[2020-10-07 08:03] LABS: INR 1.2 (<1.2)
[2020-10-07] MEDS ORDERED: METOPROLOL TARTRATE 25 MG TAB PO SCH (09:00)
[2020-10-07] MEDS ORDERED: FAMOTIDINE 20 MG TAB PO SCH (09:00)
[2020-10-07 09:05] VITALS: RESP 20
[2020-10-07 09:12] LABS: Basophils # (A) 0.1 k/uL (0-0.2); Basophils % (A) 1 %; Eosinophils % (A) 0 %; HCT 36.4 % (39.0-53.0); HGB 11.7 gm/dL (13.0-17.5); Hypochromasia Slight; Lymphocytes # (A) 1.5 k/uL (1.0-4.8); Lymphocytes % (A) 17 %; MCH 32.1 pg (25.0-35.0); MCV 100.2 fL (80.0-100.0); Mean Platelet Volume 7.9; Monocytes # (A) 0.4 k/uL (0-1.0); Monocytes % (A) 5 %; Neutrophils # (A) 6.5 k/uL (1.3-7.7); Neutrophils % (A) 75 %; Platelet Count 201 k/uL (150-450); RBC 3.63 m/uL (4.30-5.90); RDW 13.6 % (11.5-15.5); WBC 8.6 k/uL (3.8-10.6)
[2020-10-07 09:18] LABS: Calcium 8.4 mg/dL (8.4-10.2); Potassium 4.9 mmol/L (3.5-5.1); Total Bilirubin 1.1 mg/dL (0.2-1.3); Total Protein 5.7 g/dL (6.3-8.2)
--- NOTE | 2020-10-07 12:03 | P.PN ---
Subjective HISTORY OF PRESENTING ILLNESS This is a pleasant 89-year-old male past medical history significant for chronic persistent atrial fibrillation, coronary artery disease status post PCI to the proximal PLB branch and mid LAD in 2001, ischemic cardiomyopathy with ejection fraction 35%, dementia and dyslipidemia. He follows in the office with Dr Ramos. Patient is seen and examined resting comfortably laying flat in no acute distress. Telemetry tracings reviewed. He is maintaining atrial fibrillation with controlled ventricular rate. He has had no further significant pauses since discontinuation of digoxin. Blood pressure 139/56 he art rate 77 afebrile maintaining oxygen saturation on room air. PHYSICAL EXAMINATION CONSTITUTIONAL: No apparent distress. HEENT: Head is normocephalic. Pupils are equal, round. Sclerae anicteric. Mucous membranes of the mouth are moist. No JVD. No carotid bruit. CHEST EXAMINATION: Lungs are clear to auscultation. No chest wall tenderness is noted on palpation or with deep breathing. HEART EXAMINATION: Irregular rate and rhythm. S1, S2 heard. No murmurs, gallops or rub. EXTREMITIES: 2+ peripheral pulses, no lower extremity edema and no calf tenderness. ASSESSMENT Persistent atrial fibrillation with sick sinus syndrome Altered mental status Syncope Advanced dementia PLAN Stable from a cardiac perspective. Follow-up in the office with Dr. Ramos upon discharge. Nurse Practitioner note has been reviewed, I agree with a documented findings and plan of care. Patient was seen and examined. Objective - Vital Signs Vital signs: Vital Signs Temp 97.9 F 10/06/20 23:34 Pulse 77 10/07/20 08:00 Resp 20 10/07/20 08:00 BP 139/56 10/07/20 08:00 Pulse Ox 98 10/07/20 08:00 Intake & Output 10/06/20 10/07/20 10/07/20 18:59 06:59 18:59 Intake Total 200 Balance 200 Weight 59 kg Intake: Intake, IV Titration 200 Amount Magnesium Sulfate-D5w Pmx 200 1 gm In Dextrose/Water 1 100ml.bag @ 100 mls/hr IVPB ONCE ONE Rx#: [id number] Other: Voiding Method Diaper Diaper Diaper Incontinent Incontinent Incontinent # Voids 1 2 # Bowel Movements 1 - Labs CBC & Chem 7: 10/07/20 07:30 10/07/20 07:30 Labs: Abnormal Lab Results - Last 24 Hours (Table) 10/07/20 10/07/20 10/07/20 Range/Units 06:55 07:30 07:30 RBC 3.63 L (4.30-5.90) m/uL Hgb 11.7 L (13.0-17.5) gm/dL Hct 36.4 L (39.0-53.0) % MCV 100.2 H (80.0-100.0) fL INR 1.2 H (<1.2) Sodium 136 L (137-145) mmol/L Chloride 108 H (98-107) mmol/L Carbon Dioxide 17 L (22-30) mmol/L Glucose 65 L (74-99) mg/dL Total Protein 5.7 L (6.3-8.2) g/dL Albumin 3.0 L (3.5-5.0) g/dL
[2020-10-07 12:31] VITALS: BP 124/71; PULSE 81; TEMP 97.6
--- NOTE | 2020-10-07 12:35 | P.DS ---
Providers Date of admission: 10/06/20 16:16 Expected date of discharge: 10/07/20 Attending physician: Carol Miller DO Consults: 10/04/20 13:45 Consult Physician Routine Consulting Provider: Sindhu Mejía Consult Reason/Comments: TIA Do you want consulting provider notified?: Yes 10/05/20 22:42 Consult Physician Routine Consulting Provider: Greg Ramos Consult Reason/Comments: sinus pauses, bradycardia Do you want consulting provider notified?: Yes Primary care physician: Alba Woods MD Hospital Course: Hospital Course: Patient is an 89-year-old male with a past medical history of advanced dementia with paranoid behaviors, atrial fibrillation on Eliquis, previous TIAs, recurrent aspiration pneumonia, BPH, and hypertension not on medication whom was admitted with a chief complaint of increased confusion as he was reportedly found to be on the toilet in a dazed and not responsive state described as awake but was not able to talk or communicate and just appeared to be "dazing and staring off somewhere." Patient was admitted with evaluation by neurology and cardiology. CT head was negative showing no acute intracranial process. CTA head and neck negative for acute process revealing moderate plaque proximal left ICA estimated diameter reduction of greater than 80%. CBC, BMP, and digoxin level all normal findings. Urinalysis and urine drug screen negative. During admission patient was found to have recurrent cardiac pauses and digoxin was stopped. Pt has not had any further significant pauses since discontinuation of digoxin. Patient was cleared by cardiology for discharge from a cardiac perspective with recommendations to discontinue digoxin. Recommended to pt's and daughter that we strongly recommend a subacute rehab placement secondary to patient's limited cognition, high risk for falls and injuries, and need for 24-hour supervision. Discussed potential of hospice and palliative care, and daughter opposed to this at this time and verbalized full understanding of pt's risks. Patient is being discharged home with continuous supervision and nursing care 02/04. These arrangements were set up by patient's daughter, Birgit. States pt will have a private nurse-Callie Moeller, that will provide supervision /. Discharge Diagnosis: Acute confusional episode on top of advanced dementia with paranoid behaviors, likely resulting from worsening dementia vs TIA -Continue Namenda and sertraline Persistent atrial fibrillation with recurrent cardiac pauses, resolved -EKG: Atrial fibrillation with a controlled ventricular rate at 91 bpm with no noted acute ischemic changes. -Patient had recurrent episodes of cardiac pauses lasting up to 3.2 seconds in duration. -Continue Coumadin and repeat INR in 3 days. Pt changed from Eliquis to Coumadin per family recquests. -Discontinue digoxin, per Dr. Jones-Ems Educator. BPH -Continue Flomax Chronic Hx of recurrent aspiration and TIAs Physical exam: Patient seen and fully examined at the bedside. He remains confused. This morning pt was alert to person and confused to place, time and situation. Speech was clear and face was symmetrical. Patient appeared to be agitated with assessment but did deny having any complaints including headache, numbness or tingling sensations, chest pain, shortness of breath, or abdominal pain. General: non toxic, no distress, appears at stated age Derm: warm, dry Head: atraumatic, normocephalic, symmetric Eyes: Pupils equal, no lid lag, anicteric sclera Mouth: no lip lesion, mucus membranes moist Cardiovascular: S1S2 reg, no murmur, positive posterior tibial pulses bilaterally, cap refill less than 2 Lungs: Respirations even, regular, and unlabored on 2 L O2 via nasal cannula SpO2 100%. Lungs clear to auscultation upon assessment this morning with no noted rhonchi, rales, crackles or wheezes present. No accessory muscle usage. Abdominal: soft, nontender to palpation, no guarding, no appreciable organomegaly Ext: no gross muscle atrophy, no edema, no contractures Neuro: Speech clear. Patient following limited commands. Alert to person and confused to place, time and situation. Psych: Alert to person and confused to place, time, and situation. A total of 45 minutes of time were spent preparing this complex discharge summary. Patient Condition at Discharge: Fair Plan - Discharge Summary Discharge Rx Participant: No New Discharge Prescriptions: New Aspirin 81 mg PO DAILY chew Warfarin [Coumadin] 2.5 mg PO DAILY@1800 7 Days #7 tab Acetaminophen Tab [Tylenol] 650 mg PO Q6HR PRN tab PRN Reason: Mild Pain Or Fever > 100.5 Continue Sertraline [Zoloft] 25 mg PO DAILY Tamsulosin [Flomax] 0.4 mg PO DAILY Memantine [Namenda] 5 mg PO DAILY Discontinued Digoxin [Lanoxin] 125 mcg PO DAILY Apixaban [Eliquis] 2.5 mg PO BID Discharge Medication List Sertraline [Zoloft] 25 mg PO DAILY 05/16/16 [History] Tamsulosin [Flomax] 0.4 mg PO DAILY 08/02/16 [History] Memantine [Namenda] 5 mg PO DAILY 08/06/16 [History] Acetaminophen Tab [Tylenol] 650 mg PO Q6HR PRN tab 10/07/20 [Rx] Aspirin 81 mg PO DAILY chew 10/07/20 [Rx] Warfarin [Coumadin] 2.5 mg PO DAILY@1800 7 Days #7 tab 10/07/20 [Rx] Follow up Appointment(s)/Referral(s): Alba Woods MD [Primary Care Provider] - 1-2 days Greg Ramos MD [STAFF PHYSICIAN] - 2 Weeks [facility], [NON-STAFF] - 1-2 Days Activity/Diet/Wound Care/Special Instructions: Activity: Up only with assistance as tolerated, must use a walker at all times. Diet: Heart healthy Special Instructions: Patient requires supervision 02/04 because of his limited cognition and high risk for falls and injuries. Must follow-up with PCP to have labs drawn in 3 days to evaluate the effectiveness of Coumadin. Avoid foods high in vitamin K such as Brussel sprouts, broccoli, cauliflower, cabbage, and green leafy vegetables such as Kale, spinach, turnip greens, collards, Don lettuce, parsley, and green leafy lettuce. Discharge Disposition: HOME WITH HOME HEALTH SERVICES
--- NOTE | 2020-10-07 17:46 | ECHOF ---
Referral Reason:syncope MEASUREMENTS -------- HEIGHT: 182.9 cm WEIGHT: 59.0 kg BP: 127/70 RVIDd: 3.0 cm (< 3.3) IVSd: 1.2 cm (0.6 - 1.1) LVIDd: 3.5 cm (3.9 - 5.3) LVPWd: 1.1 cm (0.6 - 1.1) IVSs: 1.6 cm LVIDs: 3.4 cm LVPWs: 1.3 cm LA Diam: 3.6 cm (2.7 - 3.8) Ao Diam: 3.3 cm (2.0 - 3.7) AV Cusp: 1.2 cm (1.5 - 2.6) MV EXCURSION: 11.844 mm (> 18.000) MV EF SLOPE: 64 mm/s (70 - 150) EPSS: 1.8 cm RAP: 5.00 mmHg RVSP: 46.80 mmHg FINDINGS -------- Atrial fibrillation. This was a technically adequate study. The left ventricular size is normal. There is borderline concentric left ventricular hypertrophy. Overall left ventricular systolic function is severely impaired with, an EF between 20 - 25 %. Mid anterior LV wall motion is akinetic. Mid anteroseptal LV wall motion is akinetic. Apical anter ior LV wall motion is akinetic. Apical lateral LV wall motion is akinetic. Apical inferior LV w all motion is akinetic. Apical septum LV wall motion is akinetic. The right ventricle is normal in size. The left atrial size is normal. The right atrial size is normal. There is moderate aortic valve sclerosis. Mild mitral annular calcification present. Lyix-cf-xmokwehb mitral regurgitation is present. Nqkg-pt-fqlxrwpg tricuspid regurgitation present. There is moderate pulmonary hypertension. The r ight ventricular systolic pressure, as measured by Doppler, is 46.80mmHg. There is no pulmonic regurgitation present. The aortic root size is normal. There is no pericardial effusion. CONCLUSIONS -------- 1. Atrial fibrillation. 2. There is borderline concentric left ventricular hypertrophy. 3. Overall left ventricular systolic function is severely impaired with, an EF between 20 - 25 %. 4. Mid anterior LV wall motion is akinetic. 5. Mid anteroseptal LV wall motion is akinetic. 6. Apical anterior LV wall motion is akinetic. 7. Apical lateral LV wall motion is akinetic. 8. Apical inferior LV wall motion is akinetic. 9. Apical septum LV wall motion is akinetic. 10. There is moderate aortic valve sclerosis. 11. Mild mitral annular calcification present. 12. Rcmi-yq-empdmqzg mitral regurgitation is present. 13. Oian-cf-ynjggsru tricuspid regurgitation present. 14. There is moderate pulmonary hypertension. 15. There is no pericardial effusion. ADVISORY SOFTWARE ENGINEER: Lo Puentes RDCS
--- NOTE | 2020-10-08 06:37 | CDI ---
Documentation Clarification Form Date: 10/08/20 From: Jacqui Mari Phone: If you have a question about this query, please contact Yadira Gibbs, Vp Ad Products And Planning at [phone] between 8am and 5pm. Admit Date: 10/06/2020 04:16:00 PM Patient Name: Flakito Lacy Visit Number: [id number] Discharge Date: 10/07/2020 03:17:00 PM ATTENTION: The Clinical Documentation Specialists (CDI) and [facility] Coding Staff appreciate your assistance in clarifying documentation. Please respond to the clarification below the line at the bottom and electronically sign. The CDI & [facility] Coding staff will review the response and follow-up if needed. Please note: Queries are made part of the Legal Health Record. If you have any questions, please contact the author of this message via ITS. Dr. Gen Su, Heart failure is documented in the past medical history in the ED Note, H&P and both consults. History/Risk Factors: SSS, persistent atrial fibrillation, delirium, dementia, HTN, COPD, ischemic cardiomyopathy, HLD, CAD, GERD, BPH Clinical Indicators: History of heart failure VS/Pulse OX: T-97.3, P-82, R-16, BP-105/83, O2 Sat-96 BNP: none Echocardiogram Results: Borderline concentric left ventricular hypertrophy. Overall left ventricular systolic function is severely impaired with, an EF between 20 - 25 %. Chest X Ray: Heart upper limits of normal in size. No acute process seen. Treatment: Digoxin 125 mcg PO daily In your professional opinion, can you please clarify the type of chronic CHF if known? Systolic Heart Failure Diastolic Heart Failure Systolic & Diastolic Heart Failure Unable to Determine Other, please specify MTDD
--- NOTE | 2020-10-08 06:49 | CDI ---
Documentation Clarification Form Date: 10/08/2020 06:40:00 AM From: Jacqui Mari Phone: If you have a question about this query, please contact Yadira Gibbs, Financial Coordinator at [phone] between 8am and 5pm. Admit Date: 10/06/2020 04:16:00 PM Patient Name: Flakito Lacy Visit Number: [id number] Discharge Date: 10/07/2020 03:17:00 PM ATTENTION: The Clinical Documentation Specialists (CDI) and [facility] Coding Staff appreciate your assistance in clarifying documentation. Please respond to the clarification below the line at the bottom and electronically sign. The CDI & [facility] Coding staff will review the response and follow-up if needed. Please note: Queries are made part of the Legal Health Record. If you have any questions, please contact the author of this message via ITS. Dr. Gen Su, TIA is documented as a diagnosis in the ED note, H&P, both consults, PNs & DS. Patient history/risk factors: SSS, persistent atrial fibrillation, delirium, dementia, HTN, COPD, ischemic cardiomyopathy, HLD, CAD, GERD, BPH Clinical indicators: He seemed to have some increased confusion this morning and wanted to use the restroom so she assisted him with walking to the restroom, she reports she returned to the restroom and found him to be on the toilet in a dazed and not responsive state Patient's daughter reports. CT head: Age related atrophic and chronic small vessel ischemic change without acute intracranial process seen at this time. Carotid US: Moderate plaque proximal left ICA estimated diameter reduction of greater than 80%. Echo: Borderline concentric left ventricular hypertrophy. Overall left ventricular systolic function is severely impaired with, an EF between 20 - 25 %. Treatment: Consult: Recurrent 2 episodes of syncope versus TIA. Rule out arrhythmia. Seizure (partial) also in the differential although less likely. Atrial fibrillation, Severe left ICA stenosis >80%. Dementia In your professional opinion, please specify underlying etiology of the transient ischemic attack: TIA, unknown cause Carotid Stenosis Other (please specify): Etiology unknown or Unable to determine MTDD
== END 2020-10-07 15:17 | disposition home health service (06) | DRG 309 ==
LOC: EC 10:09 → 6NMEDSUR 13:44 → 3SCARD 10-05 21:26 → OBSVTOIN 10-06 16:16
PROVIDERS: ADMIT Internal Medicine; ATTEND Internal Medicine
DX: I49.5 Sick sinus syndrome (principal); I48.19 Other persistent atrial fibrillation; F05 Delirium due to known physiological condition; I50.22 Chronic systolic (congestive) heart failure; F03.90 Unspecified dementia, unspecified severity, without behavioral disturbance, psychotic disturbance, mood disturbance, and anxiety; I11.0 Hypertensive heart disease with heart failure; J44.9 Chronic obstructive pulmonary disease, unspecified; Z66 Do not resuscitate; I65.22 Occlusion and stenosis of left carotid artery; I25.5 Ischemic cardiomyopathy; I44.4 Left anterior fascicular block; E78.5 Hyperlipidemia, unspecified; I25.10 Atherosclerotic heart disease of native coronary artery without angina pectoris; K21.9 Gastro-esophageal reflux disease without esophagitis; K59.00 Constipation, unspecified; N40.1 Benign prostatic hyperplasia with lower urinary tract symptoms; N39.498 Other specified urinary incontinence; M25.519 Pain in unspecified shoulder; F32.9 Major depressive disorder, single episode, unspecified; F41.9 Anxiety disorder, unspecified; R53.1 Weakness; R26.81 Unsteadiness on feet; Z79.01 Long term (current) use of anticoagulants; Z79.899 Other long term (current) drug therapy; Z86.73 Personal history of transient ischemic attack (TIA), and cerebral infarction without residual deficits; Z87.440 Personal history of urinary (tract) infections; Z86.19 Personal history of other infectious and parasitic diseases; Z87.01 Personal history of pneumonia (recurrent); Z86.14 Personal history of Methicillin resistant Staphylococcus aureus infection; Z87.19 Personal history of other diseases of the digestive system; Z95.5 Presence of coronary angioplasty implant and graft; Z90.49 Acquired absence of other specified parts of digestive tract; Z87.09 Personal history of other diseases of the respiratory system; Z91.81 History of falling; Z98.42 Cataract extraction status, left eye; Z98.41 Cataract extraction status, right eye; Z98.890 Other specified postprocedural states; Z88.8 Allergy status to other drugs, medicaments and biological substances; Z80.42 Family history of malignant neoplasm of prostate
CPT/HCPCS: 36415; 70450; 70496; 70498; 71045; 80048; 80053; 80061; 80162; 80306; 81003; 82140; 82550; 82607; 82746; 83036; 83735; 84443; 84484; 85025; 85610; 85730; 93005; 93306; 96360; 96361; 99291